=== PATIENT | male | born 1980 | race Caucasian/White ===

== ENCOUNTER 2020-10-26 12:42 | Outpatient (REF) | payer OTHER, SELFPAY ==
[2020-10-26 13:57] LABS: MANUAL DIFF FLAG NO
[2020-10-26 14:04] LABS: Basophils Percent Auto 0.5 % (0-2); Eosinophils Absolute Auto 0.3 X10*3/uL (0.0-0.4); Eosinophils Percent Auto 3.6 % (0-4); Hematocrit 44.8 % (42-52); Hemoglobin 13.8 g/dl (14.0-18.0); Imm Gran Abs Auto 0.07 X10*3/uL (0.00-0.03); Imm Gran Pct Auto 0.9 % (0.0-0.4); Lymphocytes Absolute Auto 2.8 X10*3/uL (1.2-4.9); Lymphocytes Percent Auto 34.6 % (20-40); Mean Corpuscular HGB Conc 30.8 g/dl (31.0-36.0); Mean Corpuscular Hemoglobin 26.7 pg (27.0-33.0); Mean Corpuscular Volume 86.7 fL (80-98); Mean Platelet Volume 9.6 fL (9.4-12.4); Monocytes Absolute Auto 0.7 X10*3/uL (0.1-1.2); Monocytes Percent Auto 8.5 % (2-11); Neutrophils Absolute Auto 4.3 X10*3/uL (2.0-8.3); Neutrophils Percent Auto 51.9 % (45-73); Platelet Count 334 X10*3/uL (160-400); Red Blood Count 5.17 X10*6/uL (4.60-5.80); Red Cell Distribution Width 13.2 % (11.0-16.0); White Blood Count 8.2 X10*3/uL (4.8-10.8)
[2020-10-26 14:35] LABS: Alanine Aminotransferase 50 U/L (0-40); Alkaline Phosphatase 55 U/L (39-117); Anion Gap 10 (12-20); Aspartate Amino Transferase 36 U/L (5-37); Bilirubin Total 0.2 mg/dL (0.0-1.0); Blood Urea Nitrogen 12 mg/dL (9-16); Calcium 8.9 mg/dL (8.4-10.2); Carbon Dioxide 30 mmol/L (22-29); Chloride 107 mmol/L (96-108); Cholesterol 210 mg/dL; Estimated Glomerular Filt Rate > 60; Glucose Fasting 92 mg/dL (60-99); HDL Cholesterol 44 mg/dL; LDL Cholesterol Calculated 150 mg/dl; Potassium 4.5 mmol/l (3.3-5.1); Sodium 142 mmol/L (135-145); Total Protein 6.6 g/dL (6.5-8.0); Triglycerides 84 mg/dL
[2020-10-26 14:55] LABS: TSH reflex Free T4 2.61 mIU/mL (0.32-4.0)
== END 2020-10-26 12:43 | disposition home or self-care (01) ==
LOC: HO.HMGCLDS 12:42
PROVIDERS: PCP Internal Medicine; Visit Provider Internal Medicine
DX: Z00.01 Encounter for general adult medical examination with abnormal findings (principal)
CPT/HCPCS: 36415; 80053; 80061; 84443; 85025

== ENCOUNTER → 2020-12-01 15:01 | Outpatient (BNVA) | payer OTHER, SELFPAY | PROVIDERS: PCP Internal Medicine; Visit Provider Physician Assistant | DX: Z76.89 Persons encountering health services in other specified circumstances (principal) ==

== ENCOUNTER 2020-12-19 15:43 | Emergency (ER) | payer OTHER, SELFPAY ==
[2020-12-19 15:47] VITALS: BP 135/66; PULSE 70; RESP 18; TEMP 36.4; O2SAT 98; BMI 31.1
[2020-12-19] MEDS: diphenhydrAMINE HCL 50 MG/ML VIAL 25 MG IVPUSH (16:11)
[2020-12-19] MEDS: Famotidine/PF 20 MG/2 ML VIAL IVPUSH (16:11)
[2020-12-19] MEDS: methylPREDNISolone Sod Succ/PF 125 MG/2 ML VIAL IVPUSH (16:11)
--- NOTE | 2020-12-19 16:23 | ED_ITS ---
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 REPORTS FEELS TICKLE IN HIS THROAT/MILD ORAL SWELLING, DENIES SOB, DIFFICULTY BREATHING, WHEEZING. DOES ADMIT RECENTLY STARTED NEW ANTIBIOTIC 5 DAYS AGO, DID NOT TAKE TODAY. REPORTS EATS SAME MEAL AT [facility] [employer] [facility] WITHOUT THIS REACTION. DENIES OTHER NEW EXPOSURES INCLUDING LOTIONS, CREAMS, DETERGENTS, INSECT BITES, RECENT TRAVEL, OTHERS WITH SIMILAR SYMPTOMS. DOES ADMIT THIS HAS HAPPENED IN THE PAST DUE TO NAPROXEN Related Data Previous Rx's Medication Instructions Recorded hydroxyzine HCl 25 mg tablet 25 mg PO BEDTIME PRN #20 tab 10/26/20 bisacodyl 5 mg tablet,delayed 5 mg PO ONCE 1 Days #2 tab 12/01/20 release miralax See Rx Instructions PO ONCE #238 g 12/01/20 cetirizine [Zyrtec] 10 mg PO DAILY PRN #14 tab 12/19/20 diphenhydramine HCl [Benadryl] 25 mg PO Q6H PRN #14 cap 12/19/20 epinephrine [EpiPen 2-Hsane] 0.3 mg IM Q10M PRN #1 ea 12/19/20 Allergies Allergy/AdvReac Type Severity Reaction Status Date / Time naproxen [NAPROXEN] Allergy Unknown ANGIOEDEMA, Verified 12/19/20 15:50 Penicillins [PENICILLINS] Allergy Unknown ANAPHYLAXIS Verified 12/19/20 15:50 Review of Systems Review of Systems: Constitutional: No Weight loss, No Fever, No Chills ENT : +throat tickling sensation, No difficulty swallowing, No hoarseness Cardiovascular: No Chest Pain, No SOB Respiratory: No Cough, No Sputum, No Wheezing Skin: + rash Yes all other systems are reviewed and are negative PMFSH Past Medical History Attestation statement: The following information was validated with the patient. Medical History Allergic rhinitis Anxiety Colon cancer screening Family history of colon cancer in father Need for Tdap vaccination Nephrotic syndrome Seasonal allergies Surgical History History of tonsillectomy Family History Family History Father Colon cancer Mother No problems noted. Son Seizures Asthma Allergy Maternal Grandmother No problems noted. Maternal Grandfather No problems noted. Daughter No problems noted. Daughter No problems noted. 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 Physical Exam Vital Signs: Vital Signs: Last Vital Signs Temp 97.6 F 12/19/20 15:47 Pulse 70 12/19/20 15:47 Resp 18 12/19/20 15:47 BP 135/66 12/19/20 15:47 Pulse Ox 98 12/19/20 15:47 Body Mass Index 31.1 Const: General: cooperative, healthy appearing and no acute distress Orientation/consciousness: patient oriented x3 Limitations: no limitations HENMT: Head: Yes normal to inspection Ears: hearing grossly normal bilaterally General nose exam: Normal external nose present Face and sinus: Yes normal facial exam Mouth: Normal oral and palatal mucosa present, tongue normal, no audible dysphonia and no drooling Throat: Yes posterior oropharynx normal, Yes uvula midline, No peritonsillar mass and No uvular edema Eyes: General: appearance normal, both eyes and all related structures EOM: EOMs intact bilaterally Neck: Neck: Yes normal visual inspection and Yes no lymphadenopathy Resp: Effort & Inspection: normal respiratory effort, not labored and no stridor Auscultation: clear to auscultation bilaterally, no rales, no rhonchi and no wheezes Cardio: Rate: regular rate Heart sounds: S1 normal heart sound present and S2 normal heart sound present GI: Inspection: Yes normal to inspection Skin: Other: + diffuse hives noted to bilateral arms, back, chest, and abdomen Wounds: no wounds Neuro: General: patient oriented x3 Gait exam (Neuro): Normal gait present Extrem: General: Yes normal to inspection Course Course Course Narrative: * 1713- on re-evaluation patient comfortably sleeping, hives have resolved, denies shortness of breath, difficulty breathing, oral swelling. Plan for DC home. 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 ON EXAM VSS, NAD/NONTOXIC APPEARING, NO RESPIRATORY DISTRESS. DIFFUSE HIVES NOTED. NO INTRAORAL SWELLING OR WHEEZING. DISCUSSED WITH PATIENT HE SHOULD STOP TAKING ANTIBIOTIC PLAN: IV SOLU-MEDROL, BENADRYL, PEPCID, RE-EVALUATE Discharge Plan Discharge Clinical Impression: Allergic reaction Qualifiers: Encounter type: initial encounter Qualified Code(s): T78.40XA - Allergy, unspecified, initial encounter Patient Disposition: Home, Self-Care Instructions: Allergies (ED) Additional Instructions: Soft taking newly prescribed antibiotic Take Benadryl at home as needed for allergic reaction symptoms Take Zyrtec during the day as well not make you drowsy Use EpiPen only for anaphylaxis and then come to ED for further evaluation/monitoring if used If you at all develops difficulty breathing, throat closing sensation, oral swelling, wheezing, or drooling return to the ED immediately Follow-up with her primary care doctor as well as an pump station operator for allergy testing Prescriptions: New diphenhydramine HCl [Benadryl] 25 mg capsule 25 mg PO Q6H PRN (Reason: allergic reaction) Qty: 14 RF: 0 cetirizine [Zyrtec] 10 mg tablet 10 mg PO DAILY PRN (Reason: allergy symptoms) Qty: 14 RF: 0 epinephrine [EpiPen 2-Shane] 0.3 mg/0.3 mL auto-injector 0.3 mg IM Q10M PRN (Reason: anaphylaxis) Qty: 1 RF: 0 No Action hydroxyzine HCl 25 mg tablet 25 mg PO BEDTIME PRN (Reason: anxiety) Qty: 20 RF: 0 bisacodyl [Dulcolax (bisacodyl)] 5 mg tablet,delayed release (DR/EC) 5 mg PO ONCE 1 Days Qty: 2 RF: 0 miralax See Rx Instructions PO ONCE Qty: 238 RF: 0 Referrals: Raz Boss DO [Physician] - 3 days Physician,Unknown [Primary Care Provider] - 2 days
--- NOTE | 2020-12-19 16:41 | PC.NURSE ---
pt sleepy, resp unlabored, no diff breathing, pt states, im starting to feel better.
[2020-12-19 18:00] VITALS: BP 119/63; PULSE 67; RESP 16; O2SAT 98
== END 2020-12-19 18:02 | disposition home or self-care (01) ==
PROVIDERS: Emergency Provider Emergency Medicine
DX: T78.40XA Allergy, unspecified, initial encounter (principal); L50.0 Allergic urticaria; X58.XXXA Exposure to other specified factors, initial encounter
CPT/HCPCS: 96374; 96375; 99284; J1200; J2930

== ENCOUNTER 2021-02-01 07:26 | Day surgery (SDC) | payer OTHER, SELFPAY ==
[2021-01-26 15:51] VITALS: BMI 31.8
--- NOTE | 2021-01-31 08:53 | P.CONAN_ITS ---
Documented by User: Jennifer Hinton 01/31/21 08:56 HPI - Anesthesia Eval Consult details Narrative: 40yo M for Colonoscopy PMFSH Active Problems Active Problems: All Active Problems (Updated 12/20/20 @ 00:00 by Iman Selby) Need for Tdap vaccination (Acute) Seasonal allergies (Acute) Allergic rhinitis (Acute) Anxiety (Acute) Family history of colon cancer in father (Acute) Colon cancer screening (Acute) Past Medical History Medical History Allergic rhinitis Anxiety Colon cancer screening Family history of colon cancer in father Need for Tdap vaccination Nephrotic syndrome Seasonal allergies Family History Family History Father Colon cancer Mother No problems noted. Son Seizures Asthma Allergy Maternal Grandmother No problems noted. Maternal Grandfather No problems noted. Daughter No problems noted. Daughter No problems noted. Surgical History Surgical History History of tonsillectomy Social History Social History Alcohol intake: current Alcohol intake frequency: holidays/special occasions only Smoking Status: Never smoker Use of substances other than those prescribed or required for medical reasons: Yes Substance Use Type: Marijuana Substance Use Frequency: Daily Advance Directives: No Advance Directives Information Provided: No Advance Directives on File: No Current occupational status: employed Current occupation: [email or web address] Meds Allergies Allergy/AdvReac Type Severity Reaction Status Date / Time naproxen [NAPROXEN] Allergy Severe Angioedema Verified 02/01/21 07:44 Penicillins [PENICILLINS] Allergy Severe ANAPHYLAXIS Verified 02/01/21 07:44 amoxicillin Allergy Intermediate Hives Verified 02/01/21 07:44 Exam Exam Date and Time: January 31, 2021 0853 Height,Weight and Vital Signs: Height 6 ft Weight 106.594 kg Pertinent Lab Results Pertinent Lab Results: Laboratory Tests 10/26/20 10/26/20 12:50 12:50 WBC 8.2 Hgb 13.8 L Hct 44.8 Plt Count 334 Sodium 142 Potassium 4.5 Chloride 107 Carbon Dioxide 30 H BUN 12 Creatinine 1.20 Assessment and Plan Assessment Anesthesia Assessment: Chart Reviewed Documented by User: Sameera Miller 02/01/21 07:56 PMFSH Past Medical History Medical History Allergic rhinitis Anxiety Colon cancer screening Family history of colon cancer in father Need for Tdap vaccination Nephrotic syndrome Seasonal allergies Family History Family History Father Colon cancer Mother No problems noted. Son Seizures Asthma Allergy Maternal Grandmother No problems noted. Maternal Grandfather No problems noted. Daughter No problems noted. Daughter No problems noted. 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 Meds Allergies Allergy/AdvReac Type Severity Reaction Status Date / Time naproxen [NAPROXEN] Allergy Severe Angioedema Verified 02/01/21 07:44 Penicillins [PENICILLINS] Allergy Severe ANAPHYLAXIS Verified 02/01/21 07:44 amoxicillin Allergy Intermediate Hives Verified 02/01/21 07:44 Exam Airway Mallampati Class: II TM Dist: >3cm Neck ROM: Full Loose/Missing/Broken Teeth: No Heart: RRR Lungs: CTA Assessment and Plan Assessment Anesthesia Assessment: Anesthesia Plan Discussed and Chart Reviewed Final Anesthetic Review NPO: Yes ASA Class: II Final Preanesthetic Review: Meds/Allgs Chart Reviewed, Consent Obtained/Reviewed and Anes Risks/Benef Reviewed Patient Risk: Low Procedure Risk: Low Anesthetic Plan Anesthetic Plan: MAC: Disposition: Standard PACU
[2021-02-01 07:45] VITALS: BP 126/60; PULSE 67; RESP 20; TEMP 36.5; O2SAT 97
--- NOTE | 2021-02-01 07:56 | MHC.SHP ---
Pre-Procedural Eval Section B Chief Complaint: Colon Cancer Details of Present Illness: dad with crc Relevant Family History (Specify if Yes): Yes Relevant Social History: Other (specify) (thc use) Present Medications: see Short Stay Collaborative assessment Medical History: Significant History (Allergic rhinitis Anxiety Colon cancer screening Family history of colon cancer in father Need for Tdap vaccination Nephrotic syndrome Seasonal allergies) History of Previous Operations: Relevant previous surgery/procedure and date(s) (tonsilectomy) Allergies: Allergies Allergy/AdvReac Type Severity Reaction Status Date / Time naproxen [NAPROXEN] Allergy Severe Angioedema Verified 02/01/21 07:44 Penicillins [PENICILLINS] Allergy Severe ANAPHYLAXIS Verified 02/01/21 07:44 amoxicillin Allergy Intermediate Hives Verified 02/01/21 07:44 Review of Systems Sugical H&P ROS: Negative: Constitution, Cardiovascular, Respiratory, Neurological, Psychiatric, Hem-Onc, Allergic/Immunologic, Gastrointestinal, Genitourinary, Musculoskeletal, Integumentary, Endocrine and Eyes/Ears/Nose/Throat Exam Surgical H&P Exam: Normal: HEENT, Normal: Heart, Normal: Lungs, Normal: Extremities, Normal: Abdomen, Normal: Skin and Normal: Neurological Plan Diagnosis/Plan: Unchanged I have reviewed the history and physical and performed a pertinent physical examination on my patient. No changes have occurred unless specified.
[2021-02-01] MEDS: Lactated Ringers 1,000 ML 50 ML IV (08:04)
--- NOTE | 2021-02-01 08:42 | PM.OP ---
Brief Operative Note Date of Service: 02/01/21 Pre-op diagnosis: colon screening, high risk Post-op diagnosis: same Procedure: see op note Surgeon: Jorgito Guillory MD Anesthesia: MAC Estimated blood loss (mL): 0 Condition: stable Disposition: PACU
--- NOTE | 2021-02-01 08:42 | W.PM.OPN ---
Operative Note Operative Note Date of Service: 02/01/21 Narrative: Operative Information Procedure Description: Colonoscopy COLONOSCOPY Instrument: Olympus variable stiffness pediatric scope 190L Colonoscopy Monitoring: Vital signs and clinical assessment, continuous EKG monitoring, Pulse oximetry, Carbon Dioxide monitoring and blood pressure monitoring were done throughout the procedure. Colon withdrawal time was 10 minutes. Procedure: The patient was placed in the left lateral decubitis position and pre-procedure medications were administered. After a digital rectal examination of the ano-rectum, the video colonoscope was inserted into the rectum and advanced through the colon to the cecum/TI. The colonoscope was slowly withdrawn in a retrograde panoramic fashion and the colon mucosa was carefully examined including a retroflexed view of the rectum. Findings and interventions are described below. Procedure Difficulty:easy Findings: Terminal Ileum-normal Cecum:normal Ascending Colon: normal Transverse Colon -normal Descending Colon: 8-9 mm sessile polyp removed with cold snare, not retrieved Sigmoid Colon: normal Rectum: Retroflexion with small internal hemorrhoids, grade I Anorectum - normal Colon preparation: [place] Bowel Preparation Scale Right colon; 3 Transverse colon: 3 Left colon; 3 (0 = Unprepared colon segment with mucosa not seen due to solid stool that cannot be cleared. 1 = Portion of mucosa of the colon segment seen, but other areas of the colon segment not well seen due to staining, residual stool and/or opaque liquid. 2 = Minor amount of residual staining, small fragments of stool and/or opaque liquid, but mucosa of colon segment seen well. 3 = Entire mucosa of colon segment seen well with no residual staining, small fragments of stool or opaque liquid) Impression and Post Procedure Diagnosis: polyp internal hemorrhoids Plan: High fiber diet leaflet Avoid straining at stool, epsom salts and sitz bath, anusol supps or cream as needed Repeat Colonoscopy in 5 years or earlier if clinically indicated Above findings were reviewed with the patient and relevant handouts were provided if indicated.
[2021-02-01 09:09] VITALS: BP 93/59; PULSE 67; RESP 18; TEMP 36.7; O2SAT 99
[2021-02-01 09:24] VITALS: BP 96/66; PULSE 72; RESP 18; O2SAT 98
[2021-02-01 09:39] VITALS: BP 114/79; PULSE 63; RESP 20; TEMP 36.7; O2SAT 97
== END 2021-02-01 09:50 | disposition home or self-care (01) ==
PROVIDERS: Visit Provider Internal Medicine Gastroenterology
PROC: 0DJD8ZZ Inspection of Lower Intestinal Tract, Via Natural or Artificial Opening Endoscopic (ICD-10-PCS; CPT 45378; principal; 2021-02-01 08:30)
DX: Z12.11 Encounter for screening for malignant neoplasm of colon (principal); Z80.0 Family history of malignant neoplasm of digestive organs; K63.5 Polyp of colon; K64.0 First degree hemorrhoids; K59.00 Constipation, unspecified; J30.9 Allergic rhinitis, unspecified; Z88.0 Allergy status to penicillin; Z88.8 Allergy status to other drugs, medicaments and biological substances
CPT/HCPCS: 45385; J2250

== ENCOUNTER 2022-04-09 17:59 | Emergency (ER) | payer OTHER, SELFPAY ==
[2022-04-09 18:30] VITALS: BP 121/68; PULSE 73; RESP 18; TEMP 36.6; O2SAT 95; BMI 33.9
[2022-04-09 21:17] VITALS: BP 109/60; PULSE 78; RESP 14; O2SAT 100
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
[2022-04-09] MEDS: Cyclobenzaprine HCl 10 MG TABLET PO (22:01)
== END 2022-04-09 22:27 | disposition home or self-care (01) ==
PROVIDERS: Emergency Provider Internal Medicine; PCP Internal Medicine
DX: Z04.1 Encounter for examination and observation following transport accident (principal)
CPT/HCPCS: 99283; 99284

== ENCOUNTER 2025-03-05 17:30 | Inpatient (IN) | payer OTHER, SELFPAY ==
[2025-03-05] VITALS (7 sets, daily range): BP systolic 103–128; BP diastolic 57–76; PULSE 84–104; RESP 13–20; TEMP 37.7–39.3; O2SAT 95–100; BMI 34.5
--- NOTE | ~2025-03-05 | CT_ITS ---
CLINICAL HISTORY: left lower abdominal pain CT abdomen and pelvis with contrast Comparison: None Findings: No consolidation or effusion. Minimal right basilar dependent atelectasis. The gallbladder is somewhat distended but otherwise appears unremarkable. No biliary ductal dilatation. The liver, spleen, pancreas and adrenal glands are unremarkable. Enhancement of bilateral kidneys with no ureteral stones and no hydronephrosis or hydroureter Nonspecific very mild bilateral perinephric stranding. No bowel obstruction, pneumoperitoneum, or pneumatosis. Appendix not visualized. No free fluid. Loculated fluid collection. Pelvic contents unremarkable. Left inguinal swelling with inflammatory stranding and small lymph nodes. No loculated fluid collection. Abdominal aorta normal in size. Retroaortic left renal vein. No acute fracture. 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 Left inguinal inflammatory stranding suggestive of cellulitis with reactive nodes. No abscess. 2. No acute intra-abdominal or intrapelvic findings. This document has been electronically signed by: Meme Lennon MD on 03/05/2025 22:39:53
--- NOTE | ~2025-03-05 | US_ITS ---
CLINICAL HISTORY: Pain left groin area, assess for abscess or fluid, epididymitis Scrotal ultrasound with vascular interrogation Comparison: CT/SR - CT ABDOMEN PELVIS W IV CON - 03/05/25 20:43 EDT Findings: The testes are normal in echotexture without lesions. Normal arterial/venous color Doppler and flow pattern. Right testis size: 3.5 x 2.2 x 2.8 cm, volume of 11.5mL. Left testis size: 2.9 x 2.2 x 3.1 cm, volume of 10.3mL. The right epididymis is normal in size and echotexture with normal color Doppler. Right epididymal head cysts versus spermatoceles measuring 0.5 x 0.3 x 0.5 cm and 0.5 x 0.4 x 0.4 cm. The left epididymis is enlarged, heterogeneous in echotexture and with increased color Doppler Small bilateral hydrocele with internal echoes, [id number]. No varicocele. No fluid collection in the left groin. Impression: Left epididymitis. This document has been electronically signed by: Kamala Suarez MD on 03/07/2025 13:04:21
--- NOTE | ~2025-03-05 | XR_ITS ---
CLINICAL HISTORY: SOB 2 view chest x-ray Comparison: None Findings: Heart size is normal. No consolidation, pleural effusion or pneumothorax. No acute fracture. IMPRESSION: 1. No acute findings. This document has been electronically signed by: Meme Lennon MD on 03/05/2025 19:22:03
--- NOTE | 2025-03-05 18:59 | ED.GENADULT ---
HPI - General Adult General Chief complaint: Abdominal Pain Stated complaint: lower abd pain Time Seen by Provider: 03/05/25 19:23 Source: patient and RN notes reviewed Mode of arrival: ambulatory Limitations: no limitations History of Present Illness ED Provider: Jonathon HORNER narrative: 44-year-old male past medical history significant for hypertension presents for evaluation of abdominal pain. Patient reports left-sided lower abdominal pain since late last night. He reports his headache and fevers with chills. About 2 weeks ago he had some nausea and vomiting and apparently at that time had some black stool which resolved he has not had any stool in the last 2 weeks. He reports that his father recently of colon cancer. The patient's last colonoscopy was about 8 years ago he has no history abdominal surgeries. His pain is 10/10 denies any cough, shortness of breath no other complaints or concerns at this time Related Data Previous Rx's ?Medication ?Instructions ?Recorded hydroxyzine HCl 25 mg tablet 25 mg PO BEDTIME PRN anxiety #20 10/26/20 tabs bisacodyl 5 mg tablet,delayed 5 mg PO ONCE colonoscopy prep 1 12/01/20 release (Dulcolax (bisacodyl)) day #2 tabs miralax See Rx Instructions PO ONCE #238 12/01/20 grams cetirizine 10 mg tablet (Zyrtec) 10 mg PO DAILY PRN allergy 12/19/20 symptoms #14 tabs diphenhydramine HCl 25 mg capsule 25 mg PO Q6H PRN allergic reaction 12/19/20 (Benadryl) #14 caps epinephrine 0.3 mg/0.3 mL 0.3 mg (0.3 mL) IM Q10M PRN 12/19/20 injection, auto-injector (EpiPen anaphylaxis #1 ea 2-Shane) bisacodyl 5 mg tablet,delayed 10 mg (2 x 5 mg) PO ONCE 01/30/21 release (Dulcolax (bisacodyl)) colonoscopy prep 1 day #2 tabs polyethylene glycol 3350 17 238 g PO ONCE 1 day #238 grams 01/30/21 gram/dose oral powder (Miralax) cyclobenzaprine 10 mg tablet 10 mg PO TID PRN muscle spasm 7 04/09/22 days #21 tabs Allergies Allergy/AdvReac Type Severity Reaction Status Date / Time naproxen [NAPROXEN] Allergy Severe Angioedema Verified 03/05/25 18:32 Penicillins [PENICILLINS] Allergy Severe ANAPHYLAXIS Verified 03/05/25 18:32 amoxicillin Allergy Intermediate Hives Verified 03/05/25 18:32 [place] And Derivatives Allergy Hives Verified 03/05/25 18:32 Review of Systems Constitutional: Constitutional: Reports body ache(s), Reports chills, Reports fever(s), Reports headache(s), Reports lethargy, Reports malaise and Reports weakness Eyes: Eyes: Denies blurry vision ENT: Denies vertigo, Denies dizziness, Reports headache(s) and Denies sore throat Cardiovascular: Cardiovascular: Denies chest pain and Denies dyspnea Respiratory: Respiratory: Denies cough and Denies dyspnea Gastrointestinal: Gastrointestinal: Reports abdominal pain, Denies hematochezia, Reports diarrhea, Reports loose stools, Reports nausea and Denies vomiting Musculoskeletal: Musculoskeletal: Denies back pain Integumentary/Breasts: Skin/Breast: Denies rash Neurologic: Denies vertigo, Denies dizziness, Reports headache(s) and Reports weakness PMFSH Past Medical History Medical History Allergic rhinitis Anxiety Colon cancer screening Family history of colon cancer in father Need for Tdap vaccination Nephrotic syndrome Plantar fasciitis Seasonal allergies Surgical History History of tonsillectomy Family History Family History Father Colon cancer Mother No problems noted. Son Seizures Asthma Allergy Maternal Grandmother No problems noted. Maternal Grandfather No problems noted. Daughter No problems noted. Daughter No problems noted. 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 Physical Exam ED Vital Signs: Vital Signs - 24 hr 03/05/25 18:29 03/05/25 19:58 03/05/25 20:38 Temperature 100.7 F H 102.7 F H 99.9 F Pulse Rate 104 H 92 104 H Respiratory Rate 18 16 16 Blood Pressure 128/73 109/72 118/76 Pulse Oximetry 96 95 98 Oxygen Delivery Method Room Air Room Air Room Air 03/05/25 21:29 03/05/25 22:02 03/05/25 23:22 Temperature 100.7 F H 100.8 F H 100.2 F Pulse Rate 100 91 Respiratory Rate 13 17 Blood Pressure 113/62 103/69 Pulse Oximetry 100 95 Oxygen Delivery Method Room Air Room Air 03/05/25 23:28 Temperature Pulse Rate 84 Respiratory Rate 20 Blood Pressure 107/57 L Pulse Oximetry 99 Oxygen Delivery Method Room Air BMI result Body Mass Index 34.5 Const General: healthy appearing, no acute distress, alert and awake Nutritional Appearance: well nourished Orientation/consciousness: patient oriented x3 HENMT Head: Yes normocephalic and Yes atraumatic Eyes Eyelids: Yes eyelids normal Conjunctivae: conjunctivae normal Sclerae: sclerae normal Corneas: corneas normal Pupils: Equal, round and reactive pupils present EOM: EOMs intact bilaterally Neck Neck: Yes full ROM Resp Effort & Inspection: normal respiratory effort, able to speak in complete sentences and not labored Cardio Rate: regular rate Rhythm: regular rhythm GI Inspection: No distended Palpation (GI): Soft to palpation, not firm, Tenderness to palpation present (GI) in the LLQ and in the LUQ; not in the RLQ, Guarding due to palpation present (GI) in the LLQ and not rigid Other: no palpable inguinal hernia Skin General skin exam: elasticity normal Neuro General: patient oriented x3 Cranial nerves: Yes Equal, round and reactive pupils present and Yes Bilaterally intact EOM present Cognition (Neuro): normal cognition Extrem Other: Moving all extremities well without any obvious deformities Course Course Course Narrative: RME performed by Kendal Garnica PA-C. Patient is a 44 year old assigned male at presenting to the emergency department with abdominal pain, nausea, and diarrhea. Detailed physical exam and review of systems are deferred to the primary special educator. labs and swabs ordered. Patient placed back in the waiting room pending room availability and results. Reevaluation(s) Reevaluation #1: Sepsis focused exam performed, no evidence of hypoperfusion Time: 20:38 Reevaluation #2: patient's CT scan shows possible left inguinal cellulitis. I did not previously see any skin changes on the initial evaluation, however given the CT findings I went to evaluate the patient again. There is no erythema, wounds, lesions or abscess to the lower abdomen, inguinal region or scrotum. However, the patient is still guarding in the left inguinal region on palpation. His fever has returned, we will discuss with the hospitalist for admission. Time: 23:09 Reevaluation #3: Discussed with Dr Gaspar who will admit the patient and add vancomycin. Time: 00:21 Medications Administered Discontinued Medications Generic Name Dose Route Start Last Admin Trade Name Freq PRN Reason Stop Dose Admin Ceftriaxone Sodium 1 gm 03/05/25 19:43 03/05/25 20:04 Ceftriaxone Sodium 1 Gm Vial IVPUSH 03/05/25 19:44 1 gm ONCE ONE Administration Sodium Chloride 1,000 mls @ 999 mls/hr 03/05/25 19:45 03/05/25 21:25 Ns IV 03/05/25 20:45 Infused .Q1H1M GEMINI Infusion Acetaminophen 1,000 mg in 100 mls @ 400 mls/hr 03/05/25 19:43 03/05/25 21:36 Ofirmev IV 03/05/25 19:57 Infused ONCE ONE Infusion Iohexol 100 ml 03/05/25 20:46 03/05/25 20:46 Iohexol 350 Mg/Ml 100 Ml Infus..Btl IV 03/05/25 20:47 85 ml ONCE ONE Administration Morphine Sulfate 4 mg 03/05/25 19:43 03/05/25 20:04 Morphine Sulfate 4 Mg/Ml Cartridge IVPUSH 03/05/25 19:44 4 mg ONCE ONE Administration Protocol Morphine Sulfate 4 mg 03/05/25 23:24 03/05/25 23:29 Morphine Sulfate 4 Mg/Ml Cartridge IVPUSH 03/05/25 23:25 4 mg ONCE ONE Administration Protocol Medical Decision Making Medical Decision Making [facility] [place] Narrative: 44-year-old male past medical history as above presents for evaluation of severe left lower abdominal pain for the last 24 hours. He did not have a viral illness about 2 weeks ago which resolved. He has a leukocytosis, he was febrile with a lactic of 2.1. A sepsis alert was called. He was given ceftriaxone which would cover urine jeffrey and intra-abdominal jeffrey. He received IV fluids. , CT scan pending Differential Diagnosis Differential Diagnoses: The differential diagnosis associated with the presentation includes intra-abdominal abscess Colitis Diverticulitis Inguinal hernia Sepsis Admission/Observation Consideration of admission/observation: Escalation of care including admission/observation considered Lab Data MDM Lab Attestation statement: I reviewed the patient's lab results. leukocytosis to 14.4 with no significant anemia. Normal platelet count. No electrolyte abnormalities. Lactic acid is elevated to 2.1. 03/05/25 18:52 03/05/25 18:52 Labs: Lab Results 03/05/25 03/05/25 03/05/25 Range/Units 18:52 21:30 22:09 WBC 14.4 H (4.8-10.8) X10*3/uL RBC 5.23 (4.60-5.80) X10*6/uL Hgb 14.0 (14.0-18.0) g/dl Hct 43.2 (42.0-52.0) % MCV 82.6 (80.0-98.0) fL MCH 26.8 L (27.0-33.0) pg MCHC 32.4 (31.0-36.0) g/dl RDW 13.5 (11.0-16.0) % Plt Count 234 (160-400) X10*3/uL MPV 9.0 L (9.4-12.4) fL Immature Gran % (Auto) 0.9 H (0.0-0.4) % Neut % (Auto) 89.6 H (45-73) % Lymph % (Auto) 3.1 L (20-40) % [place] % (Auto) 6.1 (2-11) % Eos % (Auto) 0.1 (0-4) % Baso % (Auto) 0.2 (0-2) % Lymph # (Auto) 0.5 L (1.2-4.9) X10*3/uL [place] # (Auto) 0.9 (0.1-1.2) X10*3/uL Eos # (Auto) 0.0 (0.0-0.4) X10*3/uL Baso # (Auto) 0.0 (0.0-0.2) X10*3/uL Abs Immat Gran (auto) 0.13 H (0.00-0.03) X10*3/uL Absolute Neuts (auto) 12.9 H (2.0-8.3) x10*3/uL Absolute Nucleated RBC 0.000 (0.0-0.012) X10*3/uL Nucleated RBC % (auto) 0.0 (0.0-0.2) /100WBC Sodium 138 (135-145) mmol/L Potassium 4.0 (3.3-5.1) mmol/L Chloride 105 (96-108) mmol/L Carbon Dioxide 24 (22-29) mmol/L Anion Gap 13 (12-20) BUN 15 (9-16) mg/dL Creatinine 1.13 (0.5-1.4) mg/dL Estim Creat Clear Calc 108.3 Estimated GFR > 60 Random Glucose 113 (60-115) mg/dL Lactic Acid 2.1 H* (0.5-2.0) mmol/L Lactic Acid F/U @ 2Hr 1.2 (0.5-2.0) mmol/L Calcium 9.1 (8.4-10.2) mg/dL Total Bilirubin 0.9 (0.0-1.0) mg/dL AST 39 H (5-37) U/L ALT 64 H (0-40) U/L Alkaline Phosphatase 60 (39-117) U/L Total Protein 7.2 (6.5-8.0) g/dL Albumin 4.4 (3.5-5.0) g/dL Urine Color Yellow Urine Appearance Clear Urine pH 5.5 (5.0-9.0) Ur Specific [place] >= 1.030 H (1.005-1.025) Urine Protein Negative (Neg-Trace) mg/dL Urine Glucose (UA) Negative (Negative) mg/dL Urine Ketones Negative (Negative) mg/dL Urine Blood Negative (Negative) Urine Nitrite Negative (Negative) Ur Leukocyte Esterase Trace H (Negative) Urine RBC 0-2 (0-2) /HPF Urine WBC 0-5 (0-5) /HPF Ur Squamous Epith Cells 0-2 (0-2) /HPF Urine Bacteria None Seen (None Seen) Hyaline Casts 3-5 (0-2) /LPF Influenza Type A (PCR) NEGATIVE (Negative) Influenza Type B (PCR) NEGATIVE (Negative) RSV RNA Qual (PCR) NEGATIVE (Negative) SARS-CoV-2 RNA (RT-PCR) NEGATIVE (Negative) Discharge Plan Discharge Clinical Impression: Abdominal pain, Cellulitis Patient Disposition: Admitted As Inpatient Prescriptions: No Action bisacodyl [Dulcolax (bisacodyl)] 5 mg tablet,delayed release (DR/EC) 10 mg PO ONCE 1 Days Qty: 2 0RF Rx Instructions: Take 2 tablets by mouth at 12:00pm the day before your procedure. polyethylene glycol 3350 [Miralax] 17 gram/dose powder 238 g PO ONCE 1 Days Qty: 238 0RF Rx Instructions: Take as directed by mouth the day before your procedure. diphenhydramine HCl [Benadryl] 25 mg capsule 25 mg PO Q6H PRN (Reason: allergic reaction) Qty: 14 0RF cetirizine [Zyrtec] 10 mg tablet 10 mg PO DAILY PRN (Reason: allergy symptoms) Qty: 14 0RF epinephrine [EpiPen 2-Shane] 0.3 mg/0.3 mL auto-injector 0.3 mg IM Q10M PRN (Reason: anaphylaxis) Qty: 1 0RF Rx Instructions: for 2 doses cyclobenzaprine 10 mg tablet 10 mg PO TID PRN (Reason: muscle spasm) 7 Days Qty: 21 0RF hydroxyzine HCl 25 mg tablet 25 mg PO BEDTIME PRN (Reason: anxiety) Qty: 20 0RF bisacodyl [Dulcolax (bisacodyl)] 5 mg tablet,delayed release (DR/EC) 5 mg PO ONCE 1 Days Qty: 2 0RF miralax See Rx Instructions PO ONCE Qty: 238 0RF Rx Instructions: 238 grams PO once; mixed with 64 oz gatorade or crystal light Print Language: Tanzanian
[2025-03-05 19:00] LABS: MANUAL DIFF FLAG NO
[2025-03-05 19:07] LABS: Basophils Percent Auto 0.2 % (0-2); Eosinophils Percent Auto 0.1 % (0-4); Hematocrit 43.2 % (42.0-52.0); Imm Gran Abs Auto 0.13 X10*3/uL (0.00-0.03); Imm Gran Pct Auto 0.9 % (0.0-0.4); Lymphocytes Absolute Auto 0.5 X10*3/uL (1.2-4.9); Lymphocytes Percent Auto 3.1 % (20-40); Mean Corpuscular HGB Conc 32.4 g/dl (31.0-36.0); Mean Corpuscular Hemoglobin 26.8 pg (27.0-33.0); Mean Corpuscular Volume 82.6 fL (80.0-98.0); Monocytes Absolute Auto 0.9 X10*3/uL (0.1-1.2); Monocytes Percent Auto 6.1 % (2-11); Neutrophils Absolute Auto 12.9 x10*3/uL (2.0-8.3); Neutrophils Percent Auto 89.6 % (45-73); Platelet Count 234 X10*3/uL (160-400); Red Blood Count 5.23 X10*6/uL (4.60-5.80); Red Cell Distribution Width 13.5 % (11.0-16.0); White Blood Count 14.4 X10*3/uL (4.8-10.8)
[2025-03-05 19:13] LABS: Alanine Aminotransferase 64 U/L (0-40); Albumin Level 4.4 g/dL (3.5-5.0); Alkaline Phosphatase 60 U/L (39-117); Anion Gap 13 (12-20); Aspartate Amino Transferase 39 U/L (5-37); Bilirubin Total 0.9 mg/dL (0.0-1.0); Blood Urea Nitrogen 15 mg/dL (9-16); Calcium 9.1 mg/dL (8.4-10.2); Carbon Dioxide 24 mmol/L (22-29); Chloride 105 mmol/L (96-108); Creatinine Clr Calc Pharmacy 108.3; Estimated Glomerular Filt Rate > 60; Glucose Random 113 mg/dL (60-115); Sodium 138 mmol/L (135-145); Total Protein 7.2 g/dL (6.5-8.0)
[2025-03-05 19:16] LABS: Lactic Acid 2.1 mmol/L (0.5-2.0)
--- OUTSIDE RECORDS SUMMARY | 2025-03-05 19:35 | XMS_ITS | Patient Health Record ---
Author Organization [facility] Angela Alvaradoley Address [address] [facility] [place] [address] Care Team Providers Care Manager Registration Name Role Phone Heath Huerta Primary Care Provider Unav ailable Black, Leandra Unavailable [phone] Allergies Allergen (clinical drug ingredient) Drug/Non Drug Allergy documented on EMR Reaction Allergy Type Onset Date Status azithromycin Zithromax Z-Shane anaphylaxis Drug Allergy Active amoxicillin Amoxicillin hives Drug Allergy Act sergio naproxen Naproxen anaphylaxis Drug Allergy Activ e Reason For Referral No Information Medications Medication SIG (Take, Route, Frequency, Duration) Notes Start Date End Date Status hydrOXYzine HCl 15 mg prn Not- Taking hydrOXYzine HCl 10 MG as directed Orally PRN Not-Taking Night Splint AFO - L1930 as directed 07/13/2021 Not-Taking Cetirizine HCl 10 MG 1 tablet Orally Onc e a day for 30 day(s) Active EpiPen prn Not-Taking Physical Therapy . . . 2-3x/week for 3- 4 weeks 11/09/2021 Active Social History Tobacco Use: Social History Observation Description Date Details (start date - stop date) Former Smoker NA - NA Tobacco Use/Smoking Question Answer Notes Are you a: former smoker Additional Findings: Tobacco Non-User Ex-cigaret te smoker Alcohol Screen Question Answer Notes Did you have a drink contain ing alcohol in the past year? Yes How often did you have a dri nk containing alcohol in the past year? Monthly or less (1 point) Points 1 Interpretation Negative Tobacco use other than smoking: Question Answer Notes Are you an other tobacco user? No Problems No Known Problems Plan Of Treatment Pending Test Test Name Order Date ,[id number] TENDON SHEATH/LIGAMENT 0 06/19/2021,[id number] TENDON SHEATH/LIGAMENT 1 01/10/2021 Insurance Providers Payer Name Payer Address Payer Phone Subscriber Number Group Number Insured Name Patient Relationship to Insured Coverage Start Date Coverage End Date [employer] [id number] [address] [address] [place] [address] [id number] Tracie Tobias Spouse - patient is the spouse of the insured Medical (General) History Medical History History ICD Code Chicken pox Surgical History Surgery Date(Month/Year) tonsillectomy tendon repair, right hand
--- OUTSIDE RECORDS SUMMARY | 2025-03-05 19:35 | XMS_ITS | Clinical Summary ---
Author Organization [facility], Address [address] [place] [address] [place] [address] Phone Care Team Providers Care Manufacturing Assembler Name Role Phone Nicolas James MD Primary Care Provider [phone] Allergies Active Allergy Reactions Criticality Noted Date Comments Naproxen 01/31/2021 Nsaids 01/31/2021 Penicillin V 01/31/2021 Penicillins 01/31/2021 Salicylates 01/31/2021 Medications cetirizine (ZyrTEC) 10 MG tablet TAKE 1 TABLET BY MOUTH DAILY NEEDED FOR ALLERGY SYMPTOMS 12/19/2020 Active Banophen 25 MG capsule TAKE 1 CAPSULE BY MOUTH EVERY 6 HOURS NEEDED FOR ALLERGIC REACTION 12/19/2020 Active EPINEPHrine (EPIPEN) 0.3 MG/0.3ML injection syringe 12/19/2020 Active fluticasone (FLONASE) 50 MCG/ACT nasal spray 01/25/2021 Active hydrOXYzine (ATARAX) 25 MG tablet TK 1 T PO QHS PRF ANXIETY 10/26/2020 Active Active Problems Problem Noted Date Diagnosed Date Serum creatinine above reference range Social History Tobacco Use Types Packs/Day Years Used Date Smoking Tobacco: Unknown Sex and Gender Information Value Date Recorded Sex Assigned at Not on file Legal Sex Male 1:08 PM EST Gender Identity Not on file Sexual Orientation Not on file Plan of Treatment Health Maintenance Due Date Last Done Comments Hepatitis B Vaccine (1 of 3 - 19+ 3-dose series) 1998 Influenza Vaccine (#1) 2024 Pneumococcal Vaccine: Pediat rics (0 to 5 Years) and At-Risk Patients (6 to 64 Years) Aged Out No longer eligi ble based on patient's age to complete this topic Insurance [facility] ([id number]) Care Teams Manufacturing Assembler Relationship Specialty Start Date End Date Nicolas James MD [address] [place] [address] [phone] PCP - General Internal Medicine 01/26/21
[2025-03-05 19:36] LABS: Influenza A PCR NEGATIVE (Negative); Influenza B PCR NEGATIVE (Negative); Resp Syncy Virus RNA Qual PCR NEGATIVE (Negative); SARS COV2 PCR INHOUSE NEGATIVE (Negative)
[2025-03-05] MEDS: Morphine Sulfate 4 MG/ML CARTRIDGE IVPUSH ×2 (20:04→23:29)
[2025-03-05] MEDS: 0.9 % Sodium Chloride 1,000 ML 999 ML IV (20:04)
[2025-03-05] MEDS: cefTRIAXone sodium 1 GM VIAL IVPUSH (20:04)
[2025-03-05] MEDS: Acetaminophen 1,000 MG/100 ML PIGGYBACK 400 MG IV (20:07)
[2025-03-05] MEDS: iohexoL 350 MG/ML 100 ML INFUS..BTL IV (20:46)
[2025-03-05 20:58] LABS: Reflex Lactate? Lactic Acid Added
[2025-03-05 21:51] LABS: ~Lactic Acid-LAB USE ONLY 1.2 mmol/L (0.5-2.0)
[2025-03-05 22:48] LABS: Appearance Urine Clear; Color Urine Yellow; Glucose Urine UA Negative (Negative); Leukocyte Esterase Urine Trace (Negative); Nitrite Urine Negative (Negative); PH 5.5 (5.0-9.0); Specific Gravity - Urine >= 1.030 (1.005-1.025); UMIC TRIGGER UACC YES; Urine Blood Negative (Negative); Urine Ketones Negative (Negative); Urine Protein Negative (Neg-Trace)
[2025-03-05 23:36] LABS: Bacteria Urine None Seen (None Seen); RBC Urine 0-2 /HPF (0-2); Squamous Epithelial Cell Urine 0-2 /HPF (0-2); WBC Urine 0-5 /HPF (0-5)
[2025-03-06] VITALS (10 sets, daily range): BP systolic 105–128; BP diastolic 63–81; PULSE 79–112; RESP 16–20; TEMP 37.2–38.3; O2SAT 94–99; BMI 34.8
--- NOTE | 2025-03-06 00:33 | PM.IMHP ---
History of Present Illness Date of Service: 03/06/25 Chief Complaint: Groin pain This is a 44-year-old male with pertinent history of allergic rhinitis who presents to the emergency department for evaluation of left groin pain. Patient states his symptoms started 1 day prior to presentation. He has been having left lower abdominal discomfort and left groin pain that started 1 day ago which has been constant, nonradiating and without any relieving factors. Also has associated fevers and chills with headache at home. Patient states about 2 weeks ago he had a GI bug, noticed black stools but since then the diarrhea and black stool have resolved. Does have family history of colon cancer. No trauma or history abdominal surgery. No chest pain, palpitations, shortness of breath, changes in urinary or bowel habits. In the emergency department, imaging suggestive of left inguinal cellulitis. Found to be febrile with temp 102.7 degrees and leukocytosis at 14.4 Review of Systems Constitutional: Constitutional: Reports chills and Reports fever(s) Cardiovascular: Cardiovascular: Reports no additional cardiovascular complaints Respiratory: Respiratory: Reports no additional respiratory complaints Gastrointestinal: Gastrointestinal: Reports abdominal pain Genitourinary: Genitourinary: Reports no additional male genitourinary complaints [facility] Medical History Plantar fasciitis Need for Tdap vaccination Seasonal allergies Allergic rhinitis Anxiety Family history of colon cancer in father Colon cancer screening Nephrotic syndrome Family History Father Colon cancer Mother No problems noted. Son Seizures Asthma Allergy Maternal Grandmother No problems noted. Maternal Grandfather No problems noted. Daughter No problems noted. Daughter No problems noted. Surgical History History of tonsillectomy Social History Alcohol intake: former Smoked in Last 30 Days: No Use of substances other than those prescribed or required for medical reasons: No Substance Use Type: Marijuana Advance Directives: No Advance Directives Information Provided: Yes Current occupational status: employed Current occupation: [employer] Meds Allergies Allergy/AdvReac Type Severity Reaction Status Date / Time naproxen [NAPROXEN] Allergy Severe Angioedema Verified 03/05/25 18:32 Penicillins [PENICILLINS] Allergy Severe ANAPHYLAXIS Verified 03/05/25 18:32 amoxicillin Allergy Intermediate Hives Verified 03/05/25 18:32 [place] And Derivatives Allergy Hives Verified 03/05/25 18:32 Physical Exam Vital Signs and Narrative: Vital Signs: Last Vital Signs Temp 100.2 F 03/05/25 23:22 Pulse 84 03/05/25 23:28 Resp 20 03/05/25 23:28 BP 107/57 L 03/05/25 23:28 Pulse Ox 99 03/05/25 23:28 O2 Del Method Room Air 03/05/25 23:28 BMI result Body Mass Index 34.5 Middle-aged male lying in bed in no distress Neck supple, no JVD Regular rate and rhythm, S1-S2 heard Regular breath sounds bilaterally, no wheezing or crackles appreciated Left groin tenderness present with guarding, no external erythema Patient is awake, alert and oriented to self, place, time and person ; no focal motor deficit Psych: Normal mood No pedal edema Results Labs 03/05/25 18:52 03/05/25 18:52 Labs: Laboratory Results - last 24 hr 03/05/25 03/05/25 03/05/25 18:52 21:30 22:09 MCV 82.6 MCH 26.8 L MCHC 32.4 RDW 13.5 Plt Count 234 MPV 9.0 L Immature Gran % (Auto) 0.9 H Neut % (Auto) 89.6 H Lymph % (Auto) 3.1 L [place] % (Auto) 6.1 Eos % (Auto) 0.1 Baso % (Auto) 0.2 Lymph # (Auto) 0.5 L [place] # (Auto) 0.9 Eos # (Auto) 0.0 Baso # (Auto) 0.0 Abs Immat Gran (auto) 0.13 H Absolute Neuts (auto) 12.9 H Absolute Nucleated RBC 0.000 Nucleated RBC % (auto) 0.0 Anion Gap 13 Estim Creat Clear Calc 108.3 Estimated GFR > 60 Random Glucose 113 Lactic Acid 2.1 H* Lactic Acid F/U @ 2Hr 1.2 Calcium 9.1 Total Bilirubin 0.9 AST 39 H ALT 64 H Alkaline Phosphatase 60 Total Protein 7.2 Albumin 4.4 Urine Color Yellow Urine Appearance Clear Urine pH 5.5 Ur Specific [place] >= 1.030 H Urine Protein Negative Urine Glucose (UA) Negative Urine Ketones Negative Urine Blood Negative Urine Nitrite Negative Ur Leukocyte Esterase Trace H Urine RBC 0-2 Urine WBC 0-5 Ur Squamous Epith Cells 0-2 Urine Bacteria None Seen Hyaline Casts 3-5 Influenza Type A (PCR) NEGATIVE Influenza Type B (PCR) NEGATIVE RSV RNA Qual (PCR) NEGATIVE SARS-CoV-2 RNA (RT-PCR) NEGATIVE Assessment and Plan (1) Sepsis: Status: Acute (2) Cellulitis: Status: Acute Plan This is a 44-year-old male with pertinent history of allergic rhinitis who presents to the emergency department for evaluation of left groin pain. #. Sepsis due to left inguinal infection: Resuscitated with IV crystalloids. Lactic acid and blood culture obtained. Initiating IV vancomycin. Imaging suggestive of cellulitis with reactive nodes. Consider General surgery consult if symptoms do not improve #. Obesity: Diet and exercise Med rec pending DVT prophylaxis: Lovenox Full code Admit as inpatient and will require two night minimum hospital stay for IV antibiotics (as above), which is not possible in a lesser acute setting. Quality Stroke Does the patient have a stroke diagnosis?: No VTE Prior VTE?: No VTE Risk Level:: Medical - moderate - high VTE Device Contraindication: Treatment Not Indicated VTE Drug Contraindication: N/A - Med Ordered
[2025-03-06] MEDS: vancomycin/NS 2,000 MG/500 ML PLAST..BAG 250 MG IV (00:57)
[2025-03-06] MEDS: Acetaminophen 325 MG TABLET 650 MG PO ×3 (01:02→22:58)
[2025-03-06] MEDS: Morphine Sulfate 4 MG/ML CARTRIDGE IVPUSH ×3 (03:18→12:35)
[2025-03-06] MEDS: Acetaminophen 1,000 MG/100 ML PIGGYBACK 400 MG IV (04:29)
[2025-03-06 05:37] LABS: MANUAL DIFF FLAG NO
[2025-03-06 05:39] LABS: Basophils Percent Auto 0.2 % (0-2); Eosinophils Percent Auto 0.1 % (0-4); Hematocrit 38.6 % (42.0-52.0); Hemoglobin 12.4 g/dl (14.0-18.0); Imm Gran Abs Auto 0.15 X10*3/uL (0.00-0.03); Imm Gran Pct Auto 0.9 % (0.0-0.4); Lymphocytes Absolute Auto 0.8 X10*3/uL (1.2-4.9); Lymphocytes Percent Auto 4.7 % (20-40); Mean Corpuscular HGB Conc 32.1 g/dl (31.0-36.0); Mean Corpuscular Hemoglobin 26.8 pg (27.0-33.0); Mean Corpuscular Volume 83.5 fL (80.0-98.0); Mean Platelet Volume 9.6 fL (9.4-12.4); Monocytes Absolute Auto 0.8 X10*3/uL (0.1-1.2); Monocytes Percent Auto 5.1 % (2-11); Neutrophils Absolute Auto 14.4 x10*3/uL (2.0-8.3); Platelet Count 205 X10*3/uL (160-400); Red Blood Count 4.62 X10*6/uL (4.60-5.80); White Blood Count 16.2 X10*3/uL (4.8-10.8)
[2025-03-06 05:53] LABS: Anion Gap 12 (12-20); Blood Urea Nitrogen 14 mg/dL (9-16); Calcium 8.2 mg/dL (8.4-10.2); Carbon Dioxide 24 mmol/L (22-29); Chloride 105 mmol/L (96-108); Creatinine Clr Calc Pharmacy 97.9; Estimated Glomerular Filt Rate > 60; Glucose Random 103 mg/dL (60-115); Potassium 3.8 mmol/L (3.3-5.1); Sodium 137 mmol/L (135-145)
--- NOTE | 2025-03-06 07:35 | PHA.PROG ---
Admission Date/Time: March 06, 2025 00:32 Indication: sepsis Weight in k.5 kg Adjusted body weight in Kg: [place] body weight in Kg: Obesity Dosing Indication % IBW: Serum Creatinine - Last 168 Hours 03/05/25 03/06/25 18:52 05:16 Creatinine 1.13 1.25 Estimated CrCl and GFR - Last 168 Hours 03/05/25 03/06/25 18:52 05:16 Estim Creat Clear Calc 108.3 97.9 Estimated GFR > 60 > 60 Vancomycin Loading Dose: 2000mg x 1 Current Vancomycin Dosing Regimen: 1000mg Q12H Vancomycin Monitoring using AUC goal of 400 - 600 range with trough as surrogate marker: 489 mg/L Date and Time for next Vancomycin Level to be drawn: 03/07 @0900 Pharmacist Comments on Vancomycin Plan: Predicted trough of 16.6 mg/L. Will continue to monitor and adjust as necessary Vancomycin dosing will take advantage of [employer] as a clinical decision support tool that uses Bayesian modeling to calculate individual patient's pharmacokinetic parameters and forecast the patient's drug concentration time course with the target goal AUC 24 range of 400 - 600 mg/L/hr.
--- NOTE | 2025-03-06 07:55 | HO.PM.IMPN ---
Subjective Subjective Date of Service: 03/06/25 Interval History: f/u on sepsis d/t cellulitis and abscess of the groin Physical Exam Vital Signs: Vital Signs: Last Vital Signs Temp 99.4 F 03/06/25 04:58 Pulse 96 03/06/25 04:58 Resp 20 03/06/25 04:58 BP 105/68 03/06/25 04:58 Pulse Ox 95 03/06/25 04:58 O2 Del Method Room Air 03/06/25 04:58 BMI result Body Mass Index 34.5 General: AO X 3, no acute distress Resp: CTA bilateral CVS: S1,S2,RRR GI: +BS, NT, no distention Skin: No rash Neuro: motor grossly intact Psych: appropriate affect Objective Data Active Medications Acetaminophen (Acetaminophen 325 Mg Tablet) 650 mg PO Q6H PRN PRN Reason: Pain, Mild 1-3,fever,headache Last Admin: 03/06/25 01:02 Dose: 650 mg Documented By: GORDON Calcium Carbonate (Calcium Carbonate 750 Mg Tab.Chew) 750 mg PO Q4H PRN PRN Reason: Heartburn Enoxaparin Sodium (Enoxaparin Sodium 40 Mg/0.4 Ml Syringe) 40 mg SUBCUT Q24H [facility] Vancomycin HCl 1,000 mg/ (Sodium Chloride) 270 mls @ 270 mls/hr IV Q12H [facility] Magnesium Hydroxide (Milk Of Magnesia 30 Ml Oral.Susp) 30 ml PO DAILY PRN PRN Reason: Constipation Melatonin (Melatonin 3 Mg Tablet) 6 mg PO BEDTIME PRN PRN Reason: Insomnia Morphine Sulfate (Morphine Sulfate 4 Mg/Ml Cartridge) 4 mg IVPUSH Q4H PRN; Protocol PRN Reason: Pain, Severe (Pain Scale 7-10) Last Admin: 03/06/25 03:18 Dose: 4 mg Documented By: GORDON Ondansetron HCl (Ondansetron Hcl 4 Mg/2 Ml Vial) 4 mg IVPUSH Q8H PRN PRN Reason: Nausea and Vomiting Pharmacy Consult (Consult Rx Vancomycin Dosing) 1 each MISCELLANE DAILY PRN PRN Reason: Consult order Sodium Chloride (0.9 % Sodium Chloride Flush 3 Ml Syringe) 3 ml IVFLUSH QSHIFT [facility] Labs 03/06/25 05:16 03/06/25 05:16 Labs: Laboratory Results - last 24 hr 03/05/25 03/05/25 03/05/25 18:52 21:30 22:09 MCV 82.6 MCH 26.8 L MCHC 32.4 RDW 13.5 Plt Count 234 MPV 9.0 L Immature Gran % (Auto) 0.9 H Neut % (Auto) 89.6 H Lymph % (Auto) 3.1 L [place] % (Auto) 6.1 Eos % (Auto) 0.1 Baso % (Auto) 0.2 Lymph # (Auto) 0.5 L [place] # (Auto) 0.9 Eos # (Auto) 0.0 Baso # (Auto) 0.0 Abs Immat Gran (auto) 0.13 H Absolute Neuts (auto) 12.9 H Absolute Nucleated RBC 0.000 Nucleated RBC % (auto) 0.0 Anion Gap 13 Estim Creat Clear Calc 108.3 Estimated GFR > 60 Random Glucose 113 Lactic Acid 2.1 H* Lactic Acid F/U @ 2Hr 1.2 Calcium 9.1 Total Bilirubin 0.9 AST 39 H ALT 64 H Alkaline Phosphatase 60 Total Protein 7.2 Albumin 4.4 Urine Color Yellow Urine Appearance Clear Urine pH 5.5 Ur Specific [place] >= 1.030 H Urine Protein Negative Urine Glucose (UA) Negative Urine Ketones Negative Urine Blood Negative Urine Nitrite Negative Ur Leukocyte Esterase Trace H Urine RBC 0-2 Urine WBC 0-5 Ur Squamous Epith Cells 0-2 Urine Bacteria None Seen Hyaline Casts 3-5 Influenza Type A (PCR) NEGATIVE Influenza Type B (PCR) NEGATIVE RSV RNA Qual (PCR) NEGATIVE SARS-CoV-2 RNA (RT-PCR) NEGATIVE 03/06/25 05:16 MCV 83.5 MCH 26.8 L MCHC 32.1 RDW 14.0 Plt Count 205 MPV 9.6 Immature Gran % (Auto) 0.9 H Neut % (Auto) 89.0 H Lymph % (Auto) 4.7 L [place] % (Auto) 5.1 Eos % (Auto) 0.1 Baso % (Auto) 0.2 Lymph # (Auto) 0.8 L [place] # (Auto) 0.8 Eos # (Auto) 0.0 Baso # (Auto) 0.0 Abs Immat Gran (auto) 0.15 H Absolute Neuts (auto) 14.4 H Absolute Nucleated RBC 0.000 Nucleated RBC % (auto) 0.0 Anion Gap 12 Estim Creat Clear Calc 97.9 Estimated GFR > 60 Random Glucose 103 Lactic Acid Lactic Acid F/U @ 2Hr Calcium 8.2 L D Total Bilirubin AST ALT Alkaline Phosphatase Total Protein Albumin Urine Color Urine Appearance Urine pH Ur Specific [place] Urine Protein Urine Glucose (UA) Urine Ketones Urine Blood Urine Nitrite Ur Leukocyte Esterase Urine RBC Urine WBC Ur Squamous Epith Cells Urine Bacteria Hyaline Casts Influenza Type A (PCR) Influenza Type B (PCR) RSV RNA Qual (PCR) SARS-CoV-2 RNA (RT-PCR) Assessment and Plan (1) Cellulitis: Status: Acute (2) Sepsis: Status: Acute Plan 44-year-old male with a history of allergic rhinitis presents to the emergency department with left groin pain. Sepsis secondary to left inguinal infection Patient resuscitated with IV crystalloids Lactic acid has normalized, Initiated IV vancomycin, add Ceftriaxone Imaging consistent with cellulitis and reactive lymphadenopathy Recommend general surgery consult if no clinical improvement Obesity Advise dietary modifications and regular exercise Lactic acidosis DVT prophylaxis: Lovenox Full code Admit as inpatient and will require two night minimum hospital stay for IV antibiotics (as above), which is not possible in a lesser acute setting. Quality Stroke Does the patient have a stroke diagnosis?: No VTE Prior VTE?: No VTE Risk Level:: Medical - moderate - high VTE Device Contraindication: Treatment Not Indicated VTE Drug Contraindication: N/A - Med Ordered
[2025-03-06] MEDS: Enoxaparin Sodium 40 MG/0.4 ML SYRINGE SUBCUT (07:57)
[2025-03-06] MEDS: 0.9 % Sodium Chloride Flush 3 ML SYRINGE IVFLUSH ×2 (07:58→22:58)
--- NOTE | 2025-03-06 08:31 | PHA.MEDREC ---
Addendum entered by Beth Gomez RPh 03/06/25 10:48: [facility] reviewed Original Note: Pharmacy Consult ? Medication Reconciliation Pharmacy has completed the medication reconciliation. Spoke to pt to confirm meds.
--- NOTE | 2025-03-06 11:20 | PC.NURSE ---
Pt will be proceeding to ED Overflow unit. Call placed to RN Allyssa for RN to RN report. Allyssa given opportunity for questions and all questions answered to satisfaction. Will contact transport.
--- NOTE | 2025-03-06 11:35 | PC.NURSE ---
Report received from FINESSE Mancuso. Taken over care at this time.
--- NOTE | 2025-03-06 11:45 | PC.NURSE ---
Pt. arrived to room ed overflow 4 at this time.
[2025-03-06] MEDS: Ciprofloxacin Lactate/D5W 400 MG/200 ML PIGGYBACK 200 MG IV (12:26)
--- NOTE | 2025-03-06 12:47 | PC.NURSE ---
Pt. sitting up and watching tv, eating his lunch, informed pt on plan of care. Pt. has some pain but Morphine given for pain. Call gonzales within reach. All needs met at this time.
[2025-03-06] MEDS: Milk of Magnesia 30 ML ORAL.SUSP PO (16:45)
--- NOTE | 2025-03-06 16:59 | PC.NURSE ---
Informed MD Arias that pt. has exceeded acetaminophen max dose at this time. Awaiting orders from MD. Informed pt on this information, applied ice packs to pt.
--- NOTE | 2025-03-06 17:16 | PC.NURSE ---
Spoke to Lev Campos, okay to give tylenol dose even thought it states max excedded. Informed MD Arias as well.
--- NOTE | 2025-03-06 22:39 | PC.NURSE ---
Addendum entered by Krystle Wilkins RN 03/06/25 23:05: amend to previous note, both ABX s are an IV route. Original Note: Patient admitted to room 368 via bed from ED unit with left groin pain. Patient a/o x3, color good, skin w/d, lung dumont clear, gait steady, voided in br, last BMT. admission completed and upon skin inspection it was noted that left groin area was with slight warmth to touch, tender, and with redness. Patient and at bedside stated area was painful and that is why he came to ED, however, the redness is now new. Will continue to monitor and noted patient is receiving both IV ABX and PO ABX. See ct scan and ED notes.
[2025-03-06] MEDS: vancomycin HCL 1,000 MG in 0.9 % Sodium Chloride 250 ML 270 MG IV (22:57)
[2025-03-07] MEDS: Ciprofloxacin Lactate/D5W 400 MG/200 ML PIGGYBACK 200 MG IV ×2 (00:05→12:43)
[2025-03-07 00:07] VITALS: TEMP 37.2
[2025-03-07 03:26] VITALS: BP 133/68; PULSE 75; RESP 20; TEMP 37.3; O2SAT 94
[2025-03-07] MEDS: Morphine Sulfate 4 MG/ML CARTRIDGE IVPUSH ×3 (05:42→13:45)
[2025-03-07 07:06] LABS: Creatinine Clr Calc Pharmacy 110.6; Estimated Glomerular Filt Rate > 60
[2025-03-07 07:10] LABS: Hematocrit 40.5 % (42.0-52.0); Hemoglobin 12.7 g/dl (14.0-18.0); Mean Corpuscular HGB Conc 31.4 g/dl (31.0-36.0); Mean Corpuscular Hemoglobin 26.6 pg (27.0-33.0); Mean Corpuscular Volume 84.9 fL (80.0-98.0); Platelet Count 207 X10*3/uL (160-400); Red Blood Count 4.77 X10*6/uL (4.60-5.80); Red Cell Distribution Width 14.1 % (11.0-16.0); White Blood Count 17.9 X10*3/uL (4.8-10.8)
[2025-03-07 07:35] VITALS: BP 130/69; PULSE 82; RESP 20; TEMP 37.4; O2SAT 93
--- NOTE | 2025-03-07 08:07 | HO.PM.IMPN ---
Subjective Subjective Date of Service: 03/07/25 Interval History: f/u on sepsis d/t cellulitis and lymphadenitis of the lef groin, more painful and area now looks red, swollen and tender Physical Exam Vital Signs: Vital Signs: Last Vital Signs Temp 99.4 F 03/07/25 07:35 Pulse 82 03/07/25 07:35 Resp 20 03/07/25 07:35 BP 130/69 03/07/25 07:35 Pulse Ox 93 03/07/25 07:35 O2 Del Method Room Air 03/07/25 07:35 BMI result Body Mass Index 34.8 General: AO X 3, no acute distress Resp: CTA bilateral CVS: S1,S2,RRR GI: +BS, NT, no distention Skin: erythema and tenderness of the left groin area, Neuro: motor grossly intact Psych: appropriate affect Objective Data Active Medications Acetaminophen (Acetaminophen 325 Mg Tablet) 650 mg PO Q6H PRN PRN Reason: Pain, Mild 1-3,fever,headache Last Admin: 03/06/25 22:58 Dose: 650 mg Documented By: TRESA Calcium Carbonate (Calcium Carbonate 750 Mg Tab.Chew) 750 mg PO Q4H PRN PRN Reason: Heartburn Enoxaparin Sodium (Enoxaparin Sodium 40 Mg/0.4 Ml Syringe) 40 mg SUBCUT Q24H [facility] Last Admin: 03/06/25 07:57 Dose: 40 mg Documented By: HUBERT Vancomycin HCl 1,000 mg/ (Sodium Chloride) 270 mls @ 270 mls/hr IV Q12H [facility] Last Infusion: 03/06/25 23:57 Dose: Infused Documented By: TRESA Ciprofloxacin (Cipro) 400 mg in 200 mls @ 200 mls/hr IV Q12H [facility] Last Infusion: 03/07/25 01:05 Dose: Infused Documented By: TRESA Magnesium Hydroxide (Milk Of Magnesia 30 Ml Oral.Susp) 30 ml PO DAILY PRN PRN Reason: Constipation Last Admin: 03/06/25 16:45 Dose: 30 ml Documented By: ELGIN Melatonin (Melatonin 3 Mg Tablet) 6 mg PO BEDTIME PRN PRN Reason: Insomnia Morphine Sulfate (Morphine Sulfate 4 Mg/Ml Cartridge) 4 mg IVPUSH Q4H PRN; Protocol PRN Reason: Pain, Severe (Pain Scale 7-10) Last Admin: 03/07/25 05:42 Dose: 4 mg Documented By: TRESA Ondansetron HCl (Ondansetron Hcl 4 Mg/2 Ml Vial) 4 mg IVPUSH Q8H PRN PRN Reason: Nausea and Vomiting Pharmacy Consult (Consult Rx Vancomycin Dosing) 1 each MISCELLANE DAILY PRN PRN Reason: Consult order Polyethylene Glycol (Polyethylene Glycol 3350 17 Gm Powd.Pack) 17 gm PO DAILY PRN PRN Reason: Constipation Sodium Chloride (0.9 % Sodium Chloride Flush 3 Ml Syringe) [facility] Last Admin: 03/06/25 22:58 Dose: 3 ml Documented By: TRESA Labs 03/07/25 05:52 03/07/25 05:52 Labs: Laboratory Results - last 24 hr 03/07/25 05:52 MCV 84.9 MCH 26.6 L MCHC 31.4 RDW 14.1 Plt Count 207 MPV 10.0 Absolute Nucleated RBC 0.000 Nucleated RBC % (auto) 0.0 Estim Creat Clear Calc 110.6 Estimated GFR > 60 Microbiology Microbiology Results: Microbiology 03/05/25 18:52 Blood Culture - Preliminary Blood - Venous No growth after 24 hours. 03/05/25 18:52 Blood Culture - Preliminary Blood - Venous No growth after 24 hours. Assessment and Plan (1) Cellulitis: Status: Acute (2) Sepsis: Status: Acute Plan 44-year-old male with a history of allergic rhinitis presents to the emergency department with left groin pain. Sepsis secondary to left inguinal lymphadenitis, looks worse, WBC increase Continue IV Vanco and Cipro, has pen allergy blood cultures negaive ID consult, may need repeat imaging Tyelenol and morphine for pain Obesity Advise dietary modifications and regular exercise Lactic acidosis DVT prophylaxis: Lovenox Full code Admit as inpatient and will require two night minimum hospital stay for IV antibiotics (as above), which is not possible in a lesser acute setting. Quality Stroke Does the patient have a stroke diagnosis?: No VTE Prior VTE?: No VTE Risk Level:: Medical - moderate - high VTE Device Contraindication: Treatment Not Indicated VTE Drug Contraindication: N/A - Med Ordered
[2025-03-07] MEDS: 0.9 % Sodium Chloride Flush 3 ML SYRINGE IVFLUSH (08:31)
[2025-03-07] MEDS: Enoxaparin Sodium 40 MG/0.4 ML SYRINGE SUBCUT (08:33)
--- NOTE | 2025-03-07 08:46 | MHC.CM.PN ---
patient lives with his . He is independent with all functional mobility. Patient does not have a PCP. The [facility] MD brochure was provided. A copy of his HCP has been requested. DP home self care. Patients will provide transportation home at discharge.
--- NOTE | 2025-03-07 09:26 | HE.PHANOTE ---
RE: edwin Accidentally entered order to start at 2300 instead of 1100 on 03/06 so level on 03/07 is subtherapeutic. Increased dose to 1250mg Q8H with predicted trough of 15.5 mg/L, AUC of 519 mg/L. Next level to be drawn 03/08 @0800
[2025-03-07] MEDS: vancomycin HCL 1,250 MG in 0.9 % Sodium Chloride 250 ML 166.67 MG IV (09:49)
[2025-03-07] MEDS: Linezolid/D5W 600 MG/300 ML PIGGYBACK 300 MG IV ×2 (11:38→20:47)
[2025-03-07] MEDS: Ibuprofen 600 MG TABLET PO (11:38)
[2025-03-07 15:14] VITALS: BP 113/71; PULSE 60; RESP 18; TEMP 36.3; O2SAT 93
[2025-03-07 19:05] VITALS: BP 122/77; PULSE 59; RESP 16; TEMP 36.2; O2SAT 96
[2025-03-08] MEDS: Ciprofloxacin Lactate/D5W 400 MG/200 ML PIGGYBACK 200 MG IV ×3 (00:10→23:49)
[2025-03-08] MEDS: 0.9 % Sodium Chloride Flush 3 ML SYRINGE IVFLUSH ×4 (00:17→23:49)
--- NOTE | 2025-03-08 01:26 | PC.NURSE ---
Patient reports feeling much better, he states hes noticed a difference since antibiotics changed. He stated he has not had any further headache, and can move about better as he feels less exhausted and also attributes this to less redness and swelling. Anxious for discharge. at bedside for the night.
[2025-03-08 03:43] VITALS: BP 117/58; PULSE 66; RESP 17; TEMP 36.6; O2SAT 96
[2025-03-08 06:13] LABS: Hematocrit 40.6 % (42.0-52.0); Hemoglobin 12.7 g/dl (14.0-18.0); Mean Corpuscular HGB Conc 31.3 g/dl (31.0-36.0); Mean Corpuscular Hemoglobin 26.5 pg (27.0-33.0); Mean Corpuscular Volume 84.6 fL (80.0-98.0); Mean Platelet Volume 10.1 fL (9.4-12.4); Platelet Count 231 X10*3/uL (160-400); Red Cell Distribution Width 13.9 % (11.0-16.0); White Blood Count 14.7 X10*3/uL (4.8-10.8)
[2025-03-08 06:30] LABS: Creatinine Clr Calc Pharmacy 102.3; Estimated Glomerular Filt Rate > 60
[2025-03-08 07:21] VITALS: BP 123/64; PULSE 67; RESP 16; TEMP 37; O2SAT 94
[2025-03-08] MEDS: Linezolid/D5W 600 MG/300 ML PIGGYBACK 300 MG IV ×2 (08:07→21:16)
[2025-03-08] MEDS: Enoxaparin Sodium 40 MG/0.4 ML SYRINGE SUBCUT (08:07)
[2025-03-08] MEDS: Ibuprofen 600 MG TABLET PO ×2 (09:14→21:12)
--- NOTE | 2025-03-08 13:10 | P.CNID_ITS ---
History of Present Illness Data of Consult Service Date: 03/08/25 Requesting physician: Philly Kline Primary Care Provider: Unknown Physician HPI Reason for consult: left sided abdominal discomfort He presents with left abdominal 6/10 discomfort worsening over last three days centered in groin area. He has no fever or chills. He has red streaking in groin area. He has no bacteremia. u/s shows left epidydimitis and CT abdomen and pelvis shows some cellulitis over groin area. He denies injury to area and denies STIs or symptoms such as burning or discharge. Review of Systems 2 Review of Systems: Yes all other systems are reviewed and are negative PMFSH Past Medical History Medical History Plantar fasciitis Need for Tdap vaccination Seasonal allergies Allergic rhinitis Anxiety Family history of colon cancer in father Colon cancer screening Nephrotic syndrome Family History Family History Father Colon cancer Mother No problems noted. Son Seizures Asthma Allergy Maternal Grandmother No problems noted. Maternal Grandfather No problems noted. Daughter No problems noted. Daughter No problems noted. 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 Meds Allergies Allergy/AdvReac Type Severity Reaction Status Date / Time naproxen [NAPROXEN] Allergy Severe Angioedema Verified 03/05/25 18:32 Penicillins [PENICILLINS] Allergy Severe ANAPHYLAXIS Verified 03/05/25 18:32 amoxicillin Allergy Intermediate Hives Verified 03/05/25 18:32 [place] [employer] Allergy Hives Verified 03/05/25 18:32 Active Medications: Current Medications Acetaminophen (Acetaminophen 325 Mg Tablet) 650 mg PO Q6H PRN PRN Reason: Pain, Mild 1-3,fever,headache Last Admin: 03/06/25 22:58 Dose: 650 mg Calcium Carbonate (Calcium Carbonate 750 Mg Tab.Chew) 750 mg PO Q4H PRN PRN Reason: Heartburn Enoxaparin Sodium (Enoxaparin Sodium 40 Mg/0.4 Ml Syringe) 40 mg SUBCUT Q24H [facility] Last Admin: 03/08/25 08:07 Dose: 40 mg Ciprofloxacin (Cipro) 400 mg in 200 mls @ 200 mls/hr IV Q12H [facility] Last Infusion: 03/08/25 12:39 Dose: Infused Linezolid (Zyvox/D5w) 600 mg in 300 mls @ 300 mls/hr IV BID [facility] Last Infusion: 03/08/25 09:08 Dose: Infused Ibuprofen (Ibuprofen 600 Mg Tablet) 600 mg PO Q6H PRN PRN Reason: Fever >100.4 Last Admin: 03/08/25 09:14 Dose: 600 mg Magnesium Hydroxide (Milk Of Magnesia 30 Ml Oral.Susp) 30 ml PO DAILY PRN PRN Reason: Constipation Last Admin: 03/06/25 16:45 Dose: 30 ml Melatonin (Melatonin 3 Mg Tablet) 6 mg PO BEDTIME PRN PRN Reason: Insomnia Morphine Sulfate (Morphine Sulfate 4 Mg/Ml Cartridge) 4 mg IVPUSH Q4H PRN; Protocol PRN Reason: Pain, Severe (Pain Scale 7-10) Last Admin: 03/07/25 13:45 Dose: 4 mg Ondansetron HCl (Ondansetron Hcl 4 Mg/2 Ml Vial) 4 mg IVPUSH Q8H PRN PRN Reason: Nausea and Vomiting Oxycodone HCl (Oxycodone Hcl Immed Release 5 Mg Tablet) 5 mg PO Q6H PRN PRN Reason: Pain, Moderate(Pain Scale 4-6) Polyethylene Glycol (Polyethylene Glycol 3350 17 Gm Powd.Pack) 17 gm PO DAILY PRN PRN Reason: Constipation Sodium Chloride (0.9 % Sodium Chloride Flush 3 Ml Syringe) 3 ml IVFLUSH QSHIFT [facility] Last Admin: 03/08/25 08:07 Dose: 3 ml Home Medications ?Medication ?Instructions ?Recorded ?Confirmed ?Last Taken ?Type acetaminophen 325 mg tablet 650 mg PO Q6H PRN Pain 03/06/25 03/06/25 Unknown History (Tylenol) ibuprofen 200 mg tablet 400 mg PO Q8H PRN Pain 03/06/25 03/06/25 Unknown History polyethylene glycol 3350 17 gram 17 g PO DAILY PRN Constipation 03/06/25 03/06/25 Unknown History oral powder packet (Miralax) Physical Exam 2 Vital Signs: Vital Signs: Last Vital Signs Temp 98.6 F 03/08/25 07:21 Pulse 67 03/08/25 07:21 Resp 16 03/08/25 07:21 BP 123/64 03/08/25 07:21 Pulse Ox 94 03/08/25 07:21 O2 Del Method Room Air 03/08/25 07:21 BMI result Body Mass Index 34.8 Skin: Other: redness over lower abdomen,skin streaking no testicle masses reported on exam Results Labs 03/08/25 05:40 03/08/25 05:40 Labs: Short CBC 03/08/25 Range/Units 05:40 WBC 14.7 H (4.8-10.8) X10*3/uL Hgb 12.7 L (14.0-18.0) g/dl Hct 40.6 L (42.0-52.0) % Plt Count 231 (160-400) X10*3/uL BMP 03/08/25 05:40 Creatinine 1.20 Microbiology Microbiology Results: Microbiology 03/05/25 18:52 Blood - Venous Blood Culture - Preliminary No growth after 48 hours. 03/05/25 18:52 Blood - Venous Blood Culture - Preliminary No growth after 48 hours. Assessment and Plan (1) Sepsis: Status: Acute (2) Cellulitis: Status: Acute Plan He has probable gram negative epidydimitis and also some lymphadenitis left groin possibly leading to gram positive cellulitis in area by means of decreasing lymphatic flow. Doubt lymphoma,doubt syphilis or HIV. Suggest check syphiliis,consider check HIV. Po Cipro or levaquin plus linezolid for total 10 day. Follow Urology outpatient.
--- NOTE | 2025-03-08 13:46 | MHC.CM.PN ---
Per MD rounds patient will be ready to discharge tomorrow. ID consult recommends PO ABX @ DC. DP Home self care. Patient will arrange for transportation home.
[2025-03-08 15:08] VITALS: BP 123/65; PULSE 74; RESP 18; TEMP 36.2; O2SAT 95
--- NOTE | 2025-03-08 16:31 | P.PNIM_ITS ---
Subjective Subjective Date of Service: 03/08/25 Interval History: Feeling better this morning, less groin discomfort, no fevers, no chills denies penile discharge No similar symptoms in the past No urinary symptoms of urgency, no frequency, no acute events overnight Review of Systems All other system reviewed and are negative Physical Exam 2 Vital Signs: Vital Signs: Last Vital Signs Temp 97.2 F 03/08/25 15:08 Pulse 74 03/08/25 15:08 Resp 18 03/08/25 15:08 BP 123/65 03/08/25 15:08 Pulse Ox 95 03/08/25 15:08 O2 Del Method Room Air 03/08/25 15:08 BMI result Body Mass Index 34.8 Const: Other: General: AO X 3, no acute distress No JVD Resp: CTA bilateral CVS: S1,S2,RRR GI: +BS, NT, no distention Skin: erythema and mild tenderness of the left groin area, normal scrotal examination no swelling Neuro: motor grossly intact Psych: appropriate affect Objective Data Active Medications Acetaminophen (Acetaminophen 325 Mg Tablet) 650 mg PO Q6H PRN PRN Reason: Pain, Mild 1-3,fever,headache Last Admin: 03/06/25 22:58 Dose: 650 mg Documented By: TRESA Calcium Carbonate (Calcium Carbonate 750 Mg Tab.Chew) 750 mg PO Q4H PRN PRN Reason: Heartburn Enoxaparin Sodium (Enoxaparin Sodium 40 Mg/0.4 Ml Syringe) 40 mg SUBCUT Q24H [facility] Last Admin: 03/08/25 08:07 Dose: 40 mg Documented By: JOSH Ciprofloxacin (Cipro) 400 mg in 200 mls @ 200 mls/hr IV Q12H [facility] Last Infusion: 03/08/25 12:39 Dose: Infused Documented By: JOSH Linezolid (Zyvox/D5w) 600 mg in 300 mls @ 300 mls/hr IV BID [facility] Last Infusion: 03/08/25 09:08 Dose: Infused Documented By: JOSH Ibuprofen (Ibuprofen 600 Mg Tablet) 600 mg PO Q6H PRN PRN Reason: Fever >100.4 Last Admin: 03/08/25 09:14 Dose: 600 mg Documented By: JOSH Magnesium Hydroxide (Milk Of Magnesia 30 Ml Oral.Susp) 30 ml PO DAILY PRN PRN Reason: Constipation Last Admin: 03/06/25 16:45 Dose: 30 ml Documented By: ELGIN Melatonin (Melatonin 3 Mg Tablet) 6 mg PO BEDTIME PRN PRN Reason: Insomnia Morphine Sulfate (Morphine Sulfate 4 Mg/Ml Cartridge) 4 mg IVPUSH Q4H PRN; Protocol PRN Reason: Pain, Severe (Pain Scale 7-10) Last Admin: 03/07/25 09:45 Dose: 4 mg Documented By: RIA Ondansetron HCl (Ondansetron Hcl 4 Mg/2 Ml Vial) 4 mg IVPUSH Q8H PRN PRN Reason: Nausea and Vomiting Oxycodone HCl (Oxycodone Hcl Immed Release 5 Mg Tablet) 5 mg PO Q6H PRN PRN Reason: Pain, Moderate(Pain Scale 4-6) Polyethylene Glycol (Polyethylene Glycol 3350 17 Gm Powd.Pack) 17 gm PO DAILY PRN PRN Reason: Constipation Sodium Chloride (0.9 % Sodium Chloride Flush 3 Ml Syringe) [facility] Last Admin: 03/08/25 15:24 Dose: 3 ml Documented By: JOSH Labs 03/08/25 05:40 03/08/25 05:40 Labs: Laboratory Results - last 24 hr 03/08/25 05:40 MCV 84.6 MCH 26.5 L MCHC 31.3 RDW 13.9 Plt Count 231 MPV 10.1 Absolute Nucleated RBC 0.000 Nucleated RBC % (auto) 0.0 Estim Creat Clear Calc 102.3 Estimated GFR > 60 Microbiology Microbiology Results: Microbiology 03/05/25 18:52 Blood Culture - Preliminary Blood - Venous No growth after 48 hours. 03/05/25 18:52 Blood Culture - Preliminary Blood - Venous No growth after 48 hours. Assessment and Plan (1) Sepsis: Status: Acute (2) Cellulitis: Status: Acute Plan 44-year-old male with a history of allergic rhinitis presents to the emergency department with left groin pain. Sepsis secondary to left epididymitis and some left groin lymphadenitis, Feeling better WBC trending down less pain and redness Ultrasound showed left epididymitis On IV linezolid and IV Cipro blood cultures negaive Seen by ID she suggest to check syphilis and HIV, and recommend by mouth Levaquin or cipro plus linezolid for 10 days and outpatient urology follow-up. Class 1 Obesity Advise dietary modifications and regular exercise Acute Lactic acidosis resolved DVT prophylaxis: Lovenox Full code Will require continued inpatient hospitalization for IV antibiotics and further testing Quality Stroke Does the patient have a stroke diagnosis?: No VTE Prior VTE?: No VTE Risk Level:: Medical - moderate - high VTE Device Contraindication: Treatment Not Indicated VTE Drug Contraindication: N/A - Med Ordered
[2025-03-08 19:04] VITALS: BP 123/68; PULSE 60; RESP 20; TEMP 36.5; O2SAT 96
[2025-03-09 03:22] VITALS: BP 114/70; PULSE 60; RESP 18; TEMP 36.3; O2SAT 96
[2025-03-09 06:21] LABS: Hematocrit 40.4 % (42.0-52.0); Hemoglobin 12.8 g/dl (14.0-18.0); Mean Corpuscular HGB Conc 31.7 g/dl (31.0-36.0); Mean Corpuscular Hemoglobin 26.6 pg (27.0-33.0); Mean Platelet Volume 9.9 fL (9.4-12.4); Platelet Count 264 X10*3/uL (160-400); Red Blood Count 4.81 X10*6/uL (4.60-5.80); White Blood Count 11.4 X10*3/uL (4.8-10.8)
[2025-03-09 06:34] LABS: Creatinine Clr Calc Pharmacy 126.6; Estimated Glomerular Filt Rate > 60
[2025-03-09 06:52] LABS: HIV AB/AG Nonreactive (Nonreactive); HIV Num 1 0.05 S/CO (0.00-0.99); Syphilis Screen Nonreactive (Nonreactive)
[2025-03-09 07:25] VITALS: BP 110/70; PULSE 60; RESP 18; TEMP 36.1; O2SAT 95
[2025-03-09] MEDS: Enoxaparin Sodium 40 MG/0.4 ML SYRINGE SUBCUT (08:05)
[2025-03-09] MEDS: 0.9 % Sodium Chloride Flush 3 ML SYRINGE IVFLUSH (08:05)
[2025-03-09] MEDS: Linezolid/D5W 600 MG/300 ML PIGGYBACK 300 MG IV (08:05)
--- NOTE | 2025-03-09 10:52 | PM.DS ---
DS: Providers Provider Date of Service: 03/09/25 Date of admission: 03/06/25 00:32 Date of discharge: 03/09/25 Primary care physician: Unknown Physician Consults: 03/07/25 09:56 Consult to Infectious Diseases Routine Consulting Provider[place] [facility] Reason for consultation: lymphadenitis DS: Diagnosis Discharge Diagnosis (1) Sepsis: Status: Acute (2) Cellulitis: Status: Acute DS: Summary Hospital Course Hospital Course: History of presenting illness: Date of Service: 03/06/25 Chief Complaint: Groin pain This is a 44-year-old male with pertinent history of allergic rhinitis who presents to the emergency department for evaluation of left groin pain. Patient states his symptoms started 1 day prior to presentation. He has been having left lower abdominal discomfort and left groin pain that started 1 day ago which has been constant, nonradiating and without any relieving factors. Also has associated fevers and chills with headache at home. Patient states about 2 weeks ago he had a GI bug, noticed black stools but since then the diarrhea and black stool have resolved. Does have family history of colon cancer. No trauma or history abdominal surgery. No chest pain, palpitations, shortness of breath, changes in urinary or bowel habits. In the emergency department, imaging suggestive of left inguinal cellulitis. Found to be febrile with temp 102.7 degrees and leukocytosis at 14.4. Hospital course: 44-year-old male with a history of allergic rhinitis presents to the emergency department with left groin pain and diagnosed to have Sepsis secondary to left epididymitis and some left groin lymphadenitis/cellulitis, Scrotal Ultrasound showed left epididymitis, blood cultures x2 showed no growth patient treated with IV Cipro and IV linezolid , HIV and RPR negative seen by infectious disease, she recommend 10 days of linezolid plus Levaquin Recommend to avoid strenuous activity left leg and to have outpatient follow-up with Urology in 2-3 weeks, WBC improved, lactic acidosis resolved,and significant improvement in swelling and redness noted. Class 1 Obesity Advise dietary modifications and regular exercise. Acute Lactic acidosis resolved. Time Attestation Discharge Coordination Time (in mins): 40 Quality: Safe Use of Opioids Does Pt have an Active Cancer Diagnosis on the Problem List?: No Quality: Stroke Does the patient have a stroke diagnosis?: No Physical Exam Vital Signs: Vital Signs: Last Vital Signs Temp 96.9 F 03/09/25 07:25 Pulse 60 03/09/25 07:25 Resp 18 03/09/25 07:25 BP 110/70 03/09/25 07:25 Pulse Ox 95 03/09/25 07:25 O2 Del Method Room Air 03/09/25 07:25 BMI result Body Mass Index 34.8 Const: Other: General: AO X 3, no acute distress No JVD Resp: CTA bilateral CVS: S1,S2,RRR GI: +BS, NT, no distention Skin: Persistent mild erythema/streak left groin area, normal scrotal examination, no swelling, no mass. Neuro: motor grossly intact Psych: appropriate affect . DS: Data Data Completed and Pending Labs on day of discharge: Laboratory Results - last 24 hr 03/09/25 05:44 WBC 11.4 H RBC 4.81 Hgb 12.8 L Hct 40.4 L MCV 84.0 MCH 26.6 L MCHC 31.7 RDW 14.0 Plt Count 264 MPV 9.9 Absolute Nucleated RBC 0.000 Nucleated RBC % (auto) 0.0 Creatinine 0.97 Estim Creat Clear Calc 126.6 Estimated GFR > 60 T.pallidum Ab (EIA) Nonreactive HIV 1&2 Ab/P24 Ag 4thGn Nonreactive Preliminary micro results at discharge 03/05/25 18:52 Blood Culture - Preliminary Blood - Venous No growth after 48 hours. 03/05/25 18:52 Blood Culture - Preliminary Blood - Venous No growth after 48 hours. Discharge Plan Discharge Anticipated Discharge Date/Time: 03/09/25 10:38 Patient Disposition: Home, Self-Care Discharge Diagnosis: left epidydimitis groin cellulitis Referrals: Physician,Unknown J [Primary Care Provider] - 1 Week Discharge Medications: New linezolid 600 mg Tablet 600 mg PO Q12H Qty: 20 0RF levofloxacin 500 mg Tablet 500 mg PO Q24H Qty: 10 0RF Continued acetaminophen [Tylenol] 325 mg Tablet 650 mg PO Q6H PRN (Reason: Pain) polyethylene glycol 3350 [Miralax] 17 gram Powder In Packet 17 g PO DAILY PRN (Reason: Constipation) ibuprofen 200 mg Tablet 400 mg PO Q8H PRN (Reason: Pain) Discharge Orders: Discharge Order (Routine); Ordered 03/09/25 Ordered By: Philly Kline Diet: Advance to usual diet Activity on Discharge: As tolerated Stand Alone Forms: Patient Portal Discharge page Print Language: Citizen Of [place] Care Plan Goals: Left epididymitis/left groin lymphadenitis/ cellulitis improving take 10 days of Levaquin and linezolid twice daily Returned to check with worsening redness swelling of pain. Avoid heavy exercise or repetitive left leg activity Health Concerns: Take home medications as before Plan of Treatment: Outpatient follow-up with Urology call for appointment in 2 weeks Outpatient follow-up with primary care physician Assessment: as above
[2025-03-09] MEDS: levoFLOXacin 500 MG TABLET PO (11:01)
--- NOTE | 2025-03-09 11:31 | MHC.CM.PN ---
DP: PT HAS BEEN MEDICALLY CLEARED FOR DC HOME, NO SERVICES. PT HAS OWN [facility] HOME.
== END 2025-03-09 11:25 | disposition home or self-care (01) | DRG 383 ==
LOC: HO.ED 03-06 00:22 → HO.EDOVER 03-06 00:37 → HO.S3 03-06 19:29
PROVIDERS: Internal Medicine; Admitting Provider Student in an Organized Health Care Education/Training Program; Emergency Provider Internal Medicine; Visit Provider Hospitalist
DX: L03.314 Cellulitis of groin (principal); E87.21 Acute metabolic acidosis; N45.1 Epididymitis; I88.9 Nonspecific lymphadenitis, unspecified; E66.811 Obesity, class 1; Z68.34 Body mass index [BMI] 34.0-34.9, adult; Z71.3 Dietary counseling and surveillance; Z20.822 Contact with and (suspected) exposure to COVID-19; Z88.0 Allergy status to penicillin; Z79.899 Other long term (current) drug therapy
CPT/HCPCS: 0241U; 36415; 71046; 74177; 76870; 80048; 80053; 80202; 81001; 81003; 82565; 83605; 85025; 85027; 86780; 87040; 87389; 99285; J0131; J0696; J0744; J1650; J2020; J2270; J3370; J3371; Q9967

== ENCOUNTER → 2025-03-05 18:34 | Outpatient (BNV) | payer OTHER, SELFPAY | PROVIDERS: Visit Provider Specialist | DX: R10.9 Unspecified abdominal pain (principal) | CPT/HCPCS: 71046; 74177 ==

== ENCOUNTER 2025-03-06 00:32 | Outpatient (BNV) | payer OTHER, SELFPAY | END 2025-03-07 11:01 | PROVIDERS: Admitting Provider Student in an Organized Health Care Education/Training Program; Emergency Provider Internal Medicine; Visit Provider Radiology Diagnostic Radiology | DX: N50.1 Vascular disorders of male genital organs (principal); R10.30 Lower abdominal pain, unspecified | CPT/HCPCS: 76870 ==

== ENCOUNTER → 2025-03-06 00:32 | Outpatient (BNV) | payer OTHER, SELFPAY | PROVIDERS: Admitting Provider Student in an Organized Health Care Education/Training Program; Emergency Provider Internal Medicine; Visit Provider Internal Medicine | DX: A41.9 Sepsis, unspecified organism (principal); L03.90 Cellulitis, unspecified | CPT/HCPCS: 99222 ==

== ENCOUNTER → 2025-03-06 00:32 | Outpatient (BNV) | payer OTHER, SELFPAY | PROVIDERS: Admitting Provider Student in an Organized Health Care Education/Training Program; Emergency Provider Internal Medicine; Visit Provider Student in an Organized Health Care Education/Training Program | DX: L03.90 Cellulitis, unspecified (principal); A41.9 Sepsis, unspecified organism | CPT/HCPCS: 99233; 99239 ==

== ENCOUNTER 2025-09-24 16:18 | Outpatient (AMB) | payer BC, SELFPAY ==
--- NOTE | 2025-09-24 16:25 | MHC.PC.OV ---
Vital Signs 09/24/25 16:27 Height 5 ft 11.46 in Weight 256 lb 4 oz BMI 35.3 BP 110/66 Blood Pressure Location Lt brachial Position Sitting Pulse 61 Pulse Source Pulse Oximeter Temp 97.3 F Temp Source Temporal Artery Scan Pulse Oximetry (%) 98 Oxygen Delivery Method Room Air Intake Visit Reasons: establish care Intake Note: Patient is a new patient here to establish care for Anxiety, Allergic rhinitis, Cellulites, Constipation, Inflammation of Achilles. Transferring care from Unknown . Medical records have not been requested and have not received. Treasury Specialist Required: No Manager Of Software: Not Required per policy Accompanied by: Self / Same As Patient Allergies naproxen (NAPROXEN) Allergy (Severe, Verified 09/24/25 16:26) Angioedema Penicillins (PENICILLINS) Allergy (Severe, Verified 09/24/25 16:26) ANAPHYLAXIS amoxicillin Allergy (Intermediate, Verified 09/24/25 16:26) Hives Carver And Derivatives Allergy (Verified 09/24/25 16:26) Hives Medication List - Last Reconciled 09/24/25 by Jo Saab MD acetaminophen (Tylenol) 650 mg PO Q6H PRN ibuprofen 400 mg PO Q8H PRN polyethylene glycol 3350 (Miralax) 17 grams PO DAILY PRN Tobacco use date assessed: 09/24/25 Dental Screening Dental Screen Date: 09/24/25 Did you have a dental visit in the last 12 months?: Yes Did you have a dental problem in the last 6 months where you did not have access to dental care?: No Was dental information given to patient?: Patient has dentist HPI HPI Comments History of Present Illness Details The patient is a 45-year-old male presenting to [facility]. He reports bilateral Achilles tendinitis and associated symptoms. The patient reports experiencing inflammation in both Achilles tendons for the past six months, which has necessitated physical therapy and the use of a brace. He has been prescribed steroids, which provided temporary relief, but the pain persists. The patient also reports a history of constipation, which he attributes to dietary habits. He has been using a laxative to manage this condition, but feels it is not entirely effective. There is a significant family history of colon cancer, with the patient's father having from the disease. The patient is overdue for a colonoscopy, having missed the recommended screening at age 43 due to lack of insurance. The patient has gained approximately 30 pounds over the past year, which he attributes to poor dietary habits and decreased physical activity due to pain. He reports feeling bloated and experiencing heartburn, which he associates with his current diet. The patient also reports experiencing back pain, which he describes as worsening with prolonged sitting and standing. He has been undergoing physical therapy, which has provided some relief. [facility] Medical History (Updated 09/25/25 @ 09:49 by Jo Saab MD) Plantar fasciitis Need for Tdap vaccination Seasonal allergies Allergic rhinitis Anxiety Family history of colon cancer in father Colon cancer screening Nephrotic syndrome Surgical History (Updated 09/24/25 @ 16:36 by ADAMA Barbosa) History of hand surgery History of tonsillectomy Family History Father Colon cancer Mother No problems noted. Son Seizures Asthma Allergy Maternal Grandmother No problems noted. Maternal Grandfather No problems noted. Daughter No problems noted. Daughter No problems noted. Social History Household Members: Spouse Housing: Apartment Do you presently have visiting nurse or other home services: No Alcohol intake: former Patient Tobacco Use Status: Never used Tobacco e-Cigarette/Vaping Use: Never Used Second Hand Smoke Exposure: No Substance Use Type: Marijuana service: No Current occupational status: employed Current occupation: [employer] Cognitive needs: No Hearing needs: No Vision needs: No Questionnaire PHQ-9 Over the last 2 weeks, how often have you been bothered by any of the following problems? 1. Little interest or pleasure in doing things: several days 2. Feeling down, depressed, or hopeless: not at all 3. Trouble falling or staying asleep, or sleeping too much: several days 4. Feeling tired or having little energy: nearly every day 5. Poor appetite or overeating: nearly every day 6. Feeling bad about yourself - or that you are a failure or have let yourself or your family down: not at all 7. Trouble concentrating on things, such as reading the newspaper or watching television: several days 8. Moving or speaking so slowly that other people could have noticed. Or the opposite - being so fidgety or restless that you have been moving around a lot more than usual: nearly every day 9. Thoughts that you would be better off or of hurting yourself in some way: not at all Total score: 12 Depression Screening Interpretation: Positive Depression Screening Done: Yes Source: Developed by Drs. Kenny Pitts, Janina Jay, Yrn Coppola and colleagues, with an educational venu from [employer]. Thrive Questionnaire Date Thrive assessed: 09/23/25 I am a: Patient What is your living situation today?: I have a steady place to live Within the past 12 months, did the food you bought not last and you didn't have the money to get more?: Never true Within the past 12 months, did you worry whether your food would run out before you got money to buy more?: Never true Do you have trouble paying for medicines?: No Do you have trouble getting transportation to medical appointments?: No Do you have trouble paying your heating and electricity bill?: No Do you have trouble taking care of your child, family member or friend?: No Do you have trouble with day-to-day activities such as bathing, preparing meals, shopping, managing finances, etc.?: No Are you currently unemployed and looking for a job?: No Are you interested in more education?: Yes Please select the resources that you would like help with: Education Currently or been in a relationship where the following occur: No concerns reported THRIVE Score: 0 AUDIT C Alcohol Use Questionnaire (AUDIT-C) 1. How often do you have a drink containing alcohol?: Never Total Score: 0 GILBERTO-7 AMB Questionnaire GILBERTO-7 Date GILBERTO - 7 assessed: 09/24/25 Feeling nervous, anxious, or on edge: 0 = Not at all Not being able to stop or control worryin = Not at all Worrying too much about different things: 0 = Not at all Trouble relaxin = Not at all Being so restless that it is hard to sit still: 0 = Not at all Becoming easily annoyed or irritable: 0 = Not at all Feeling afraid as if something awful might happen: 0 = Not at all Total GILBERTO-7 score (0-4 normal; 5-9 mild; 10-14 moderate; 15-21 severe): 0 Source: Developed by Drs. Kenny Pitts, Janina Jay, Yrn Coppola and colleagues, with an educational venu from [employer]. Review of Systems Const Details: Positives besides what was mentioned in HPI are in BOLD Constitutional: No Weight Change, No Fever, No Chills, No Night Sweats, No Fatigue, No Malaise ENT/Mouth: No Hearing Changes, No Ear Pain, No Nasal Congestion, No Sinus Pain, No Hoarseness, No sore throat, No Rhinorrhea, No Swallowing Difficulty Eyes: No Eye Pain, No Swelling, No Redness, No Foreign Body, No Discharge, No Vision Changes Cardiovascular: No Chest Pain, No SOB, No PND, No Dyspnea on Exertion, No Orthopnea, No Claudication, No Edema, No Palpitations Respiratory: No Cough, No Sputum, No Wheezing, No Smoke Exposure, No Dyspnea Gastrointestinal: No Nausea, No Vomiting, No Diarrhea, No Constipation, No Pain, No Heartburn, No Anorexia, No Dysphagia, No Hematochezia, No Melena, No Flatulence, No Jaundice Genitourinary: No Dysmenorrhea, No DUB, No Dyspareunia, No Dysuria, No Urinary Frequency, No Hematuria, No Urinary Incontinence, No Urgency, No Flank Pain, No Urinary Flow Changes, No Hesitancy Musculoskeletal: No Arthralgias, No Myalgias, No Joint Swelling, No Joint Stiffness, No Back Pain, No Neck Pain, No Injury History Skin: No Skin Lesions, No Pruritis, No Hair Changes, No Breast/Skin Changes, No Nipple Discharge Neuro: No Weakness, No Numbness, No Paresthesias, No Loss of Consciousness, No Syncope, No Dizziness, No Headache, No Coordination Changes, No Recent Falls Psych: No Anxiety/Panic, No Depression, No Insomnia, No Personality Changes, No Delusions, No Rumination, No SI/HI/AH/VH, No Social Issues, No Memory Changes, No Violence/Abuse Hx., No Eating Concerns Heme/Lymph: No Bruising, No Bleeding, No Transfusions History, No Lymphadenopathy Endocrine: No Polyuria, No Polydipsia, No Temperature Intolerance Physical exam (Primary Care) Vital Signs: Last Vital Signs Temp 97.3 F 09/24/25 16:27 Pulse 61 09/24/25 16:27 BP 110/66 09/24/25 16:27 Pulse Ox 98 10/24/25 16:27 Oxygen Delivery Method Room Air 09/24/25 16:27 BMI result Body Mass Index 35.3 Tobacco/Smoking Status: Tobacco use Status Tobacco use date assessed 09/24/25 09/24/25 16:37 Patient Tobacco Use Status Never used Tobacco 09/24/25 16:37 e-Cigarette/Vaping Use Never Used 09/24/25 16:37 PHQ-9: PHQ-9 Score PHQ-9: Total score 12 09/24/25 16:45 Depression Screening Interpretation: Positive Thrive Assessment: Date of Thrive Assessment Date Thrive assessed 09/23/25 09/24/25 16:37 Currently or been in a relationship where the following occur: No concerns reported Const Other: Pertinent findings are in BOLD GENERAL APPEARANCE NAD, activity normal for age, well developed/ well nourished, no cyanosis, pallor, or diaphoresis. EYES lids/conjunctiva normal. EARS/NOSE/THROAT Mucous membranes moist, nares normal, lips/teeth normal uvula midline without oral pharyngeal erythema, exudate or swelling TMs normal bilaterally. No lymphangitis/lymphedema. HEAD/NECK normocephalic atraumatic, no facial trauma, neck is supple. RESPIRATORY respiratory effort normal, speaks in full sentences, no tripod position, no accessory muscle use. Lungs clear to auscultation without rhonchi, wheezes, rales CARDIAC Regular rate and rhythm, no edema. ABDOMINAL Soft, ND/NT. No evidence of fluid wave. No pulsatile masses on exam, rebound tenderness, Eric sign or pain over Mcburney's point. MUSCLES/EXTREMITIES No abnormal range of motion, no swelling. Tenderness to palpation of the lower back. Tenderness on palpation of Achilles tendon bilaterally. SKIN Warm, pink and dry. No rashes, dermatoses, petechiae or lesions. NEUROLOGICAL Speech is clear and appropriate. Normal level of consciousness. Gait and coordination are normal. 5/5 strength in all extremities. PSYCH Normal mood and affect. Judgement/competence is appropriate Coding Level of Care Code New Pt Level 4 (72280) New Pt Prev Care 40-64y(15068) Diagnoses Healthcare maintenance Z00.00 Enthesitis M77.9 Gastroesophageal reflux disease, unspecified whether esophagitis present K21.9 Esophagitis presence: esophagitis presence not specified Constipation, unspecified constipation type K59.00 Constipation type: unspecified constipation type Class 2 obesity due to excess calories with body mass index (BMI) of 35.0 to 35.9 in adult, unspecified whether serious comorbidity present E66.09; Z68.35 Obesity classification: adult class 2 (BMI 35 - 39.9) Serious obesity comorbidity presence: unspecified whether serious comorbidity present Body mass index: BMI 35.0-35.9 Obesity type: due to excess calories Bilateral low back pain without sciatica, unspecified chronicity M54.50 Chronicity: unspecified Back pain laterality: bilateral Sciatica presence: without sciatica Time Spent (min) 40 Assessment & Plan Assessment & Plan (1) Healthcare maintenance: Code(s): Z00.00 - Encounter for general adult medical examination without abnormal findings Category: Medical Plan: CBC, CMP, Lipid panel, A1C, TSH w T4, vit D. Ordered today. Shingles 2 doses when >50 yo. COVID: two doses. We will discuss during next visit. Pneumococcal: 19-64. Next visit. Flu vaccine: Next visit. Tdap: Colonoscopy: 45-75. Ordered today. Father passed due to colon cancer. He is overdue for screening. He was supposed to get it at 45. AAA: 65 -75. NI. CT lun - 80. NI. PSA: 50 -70 every two years. HIV: ordered today. HCV: ordered today. (2) Enthesitis: Code(s): M77.9 - Enthesopathy, unspecified Category: Medical Plan: MRI of the ankles to rule out enthesitis. Patient reports previous trial of steroid shots which provided relief and then the pain came back. No skin lesions suggestive of psoriasis. The patient reports associated lower back pain so Ankylosing spondylitis is a possibility. Rheumatologic W-U: ESR, CRP, JOSELUIS, RF, anti CCP, Urine protein, HLA-B27, andti DS DNA, MRI of lumbar back to rule out ankylosing spondylitis. Lifestyle modification to assist with pain. (3) GERD (gastroesophageal reflux disease): Code(s): K21.9 - Gastro-esophageal reflux disease without esophagitis Category: Medical Qualifiers: Esophagitis presence: esophagitis presence not specified Qualified Code(s): K21.9 - Gastro-esophageal reflux disease without esophagitis Plan: Omeprazole 20 mg Daily. Diet modification to identify triggers. No weight loss, no odynophagia, no dysphagia, No tarry stool, no vomiting. (4) Constipation: Code(s): K59.00 - Constipation, unspecified Category: Medical Qualifiers: Constipation type: unspecified constipation type Qualified Code(s): K59.00 - Constipation, unspecified Plan: Patient has been using Miralax with not much relief. Added Senna and recommended using Senna and Miralax combination. (5) Obesity: Comment: weight 256lb 09/25. Code(s): E66.9 - Obesity, unspecified Category: Medical Qualifiers: Obesity classification: adult class 2 (BMI 35 - 39.9) Serious obesity comorbidity presence: unspecified whether serious comorbidity present Body mass index: BMI 35.0-35.9 Obesity type: due to excess calories Qualified Code(s): E66.09 - Other obesity due to excess calories; Z68.35 - Body mass index [BMI] 35.0-35.9, adult Plan: Advised on lifestyle modification. We will discuss weight management referral if the patient does not loose weight with lifestyle modifications only. (6) Low back pain: Code(s): M54.50 - Low back pain, unspecified Category: Medical Qualifiers: Chronicity: unspecified Back pain laterality: bilateral Sciatica presence: without sciatica Qualified Code(s): M54.50 - Low back pain, unspecified Plan: Low back pain in the presence of achiles tendon tenderness might indicate ankylosing spondylitis. MRI lumbar spine to detect early arthritic changes or signs of ankylosing spondylitis. Orders: Orders Complete Blood Count no Diff 09/24/25. - Encounter for general adult medical examination without abnormal findings Vitamin D 25-OH Total 09/24/25. - Encounter for general adult medical examination without abnormal findings TSH reflex Free T4 09/24/25. - Encounter for general adult medical examination without abnormal findings HIV Ab/Ag 09/24/25. - Encounter for general adult medical examination without abnormal findings Hepatitis C Antibody Reflex 09/24/25. - Encounter for general adult medical examination without abnormal findings Comprehensive Met. Panel 09/24/25 - Encounter for general adult medical examination without abnormal findings Hemoglobin A1c 09/24/25. - Encounter for general adult medical examination without abnormal findings Lipid Panel 09/24/25 Z00.00 - Encounter for general adult medical examination without abnormal findings UA and rflx microscopic 09/24/25 Z00.00 - Encounter for general adult medical examination without abnormal findings HLA B27 Today M77.9 - Enthesopathy, unspecified JOSELUIS Reflex Titer and Pattern Today M77.9 - Enthesopathy, unspecified Rheumatoid Factor Today M77.9 - Enthesopathy, unspecified MR lumbar spine wo con Today M45.9 - Ankylosing spondylitis of unspecified sites in spine CRP High Sensitivity Today M77.9 - Enthesopathy, unspecified Erythrocyte Sedimentation Rate Today M77.9 - Enthesopathy, unspecified Cyclic Citrullinated Peptide Today M77.9 - Enthesopathy, unspecified Microalbumin, Random (w Creat) Today M77.9 - Enthesopathy, unspecified Anti DNA DS Antibody Today M77.9 - Enthesopathy, unspecified Referrals Open Access Screening Colonoscopy Referral Z12.11 - Encounter for screening for malignant neoplasm of colon, Z12.12 - Encounter for screening for malignant neoplasm of rectum Medications: New sennosides (senna) 8.6 mg PO BEDTIME PRN 20 caps 0RF constipation omeprazole 20 mg PO DAILY 30 caps 3RF
[2025-09-24 16:27] VITALS: BP 110/66; PULSE 61; TEMP 36.3; O2SAT 98; BMI 35.3
--- OUTSIDE RECORDS SUMMARY | 2025-09-24 17:18 | XMS_ITS | Clinical Summary ---
Author Organization [facility], Address [address] [place] [address] [place] [address] Phone Care Team Providers Care On Call Pharmacy Technician Name Role Phone Nicolas James MD Primary Care Provider [phone] Allergies Active Allergy Reactions Criticality Noted Date [...] 19+ 3-dose series) 1998 Influenza Vaccine (#1) 2025 Pneumococcal Vaccine: Peds ( 0 to 5 Years) and At-Risk Patients (6 to 49 Years) Aged Out No longer eligible b ased on patient's age to complete this topic Insurance [facility] Core ([id number]) Care Teams On Call Pharmacy Technician Relationship Specialty Start Date End Date Nicolas James MD [facility] [place], [place] [id number] PCP - General Internal Medicine 01/26/21
--- OUTSIDE RECORDS SUMMARY | 2025-09-24 17:18 | XMS_ITS | Patient Health Record ---
[facility] [place] Address [address] [place] [address] Care Team Providers Care Body Technician/Painter Name Role Phone Heath Huerta Primary Care Provider Unav ailable Black, Leandra Unavailable [phone] Allergies Allergen (clinical drug ingredient) Drug/Non Drug [...] MG 1 tablet Orally Onc e a day; Duration: 30 day(s) Active EpiPen prn Not-Taking Physical Therapy . . . 2-3x/week; Duration: 3-4 weeks 11/09/2021 Active Social History Tobacco Use: [...] Treatment Pending Test Test Name Order Date ,[id number] TENDON SHEATH/LIGAMENT 0 06/19/2021,[id number] TENDON SHEATH/LIGAMENT 1 01/10/2021 Insurance Providers Payer Name Payer Address Payer Phone Subscriber Number Group Number Insured Name Patient Relationship to Insured Coverage Start Date Coverage End Date [facility] [id number] [address] [address] [place] [address] [id number] Tracie Tobias Spouse - patient is the spouse of the insured Medical (General) History Medical History History ICD Code Chicken pox Surgical History Surgery Date(Month/Year) tonsillectomy tendon repair, right hand
== END 2025-09-24 17:18 | disposition home or self-care (01) ==
LOC: HO.HMCH 16:19
PROVIDERS: Visit Provider Internal Medicine
DX: Z00.00 Encounter for general adult medical examination without abnormal findings (principal); M77.9 Enthesopathy, unspecified; E66.09 Other obesity due to excess calories; Z68.35 Body mass index [BMI] 35.0-35.9, adult; K21.9 Gastro-esophageal reflux disease without esophagitis; K59.00 Constipation, unspecified; M54.50 Low back pain, unspecified

== ENCOUNTER 2025-10-07 09:21 | Outpatient (REF) | payer BC, SELFPAY ==
--- OUTSIDE RECORDS SUMMARY | 2025-10-07 10:25 | XMS_ITS | Patient Health Record ---
[facility] [place] Address [address] [place] [address] Care Team Providers Care Pharmacy Intake Coordinator Name Role Phone Heath Huerta Primary Care Provider Unav ailable Black, Leandra Unavailable [phone] Allergies Allergen (clinical drug ingredient) Drug/Non Drug [...] Treatment Pending Test Test Name Order Date ,[id number] TENDON SHEATH/LIGAMENT 0 06/19/2021,[id number] TENDON SHEATH/LIGAMENT 1 01/10/2021 Insurance Providers Payer Name Payer Address Payer Phone Subscriber Number Group Number Insured Name Patient Relationship to Insured Coverage Start Date Coverage End Date [employer] [id number] [address] [address] [place] [address] [id number] Tracie Tobias Spouse - patient is the spouse of the insured Medical (General) History Medical History History ICD Code Chicken pox Surgical History Surgery Date(Month/Year) tonsillectomy tendon repair, right hand
[2025-10-07 10:37] LABS: Hematocrit 45.6 % (42.0-52.0); Hemoglobin 14.1 g/dl (14.0-18.0); Mean Corpuscular HGB Conc 30.9 g/dl (31.0-36.0); Mean Corpuscular Hemoglobin 26.1 pg (27.0-33.0); Mean Corpuscular Volume 84.3 fL (80.0-98.0); NRBC Abs Auto 0.020 X10*3/uL (0.0-0.012); NRBC Pct Auto 0.3 /100WBC (0.0-0.2); Platelet Count 345 X10*3/uL (160-400); Red Blood Count 5.41 X10*6/uL (4.60-5.80); White Blood Count 6.1 X10*3/uL (4.8-10.8)
[2025-10-07 10:59] LABS: Appearance Urine Clear; Glucose Urine UA Negative (Negative); PH 5.0 (5.0-9.0); Specific Gravity - Urine 1.020 (1.005-1.025)
[2025-10-07 11:16] LABS: Alanine Aminotransferase 47 U/L (0-40); Albumin Level 4.4 g/dL (3.5-5.0); Alkaline Phosphatase 54 U/L (39-117); Anion Gap 9 (12-20); Aspartate Amino Transferase 30 U/L (5-37); Blood Urea Nitrogen 16 mg/dL (9-16); Calcium 8.8 mg/dL (8.4-10.2); Carbon Dioxide 28 mmol/L (22-29); Chloride 109 mmol/L (96-108); Cholesterol 231 mg/dL (<200); Estimated Glomerular Filt Rate > 60; HDL Cholesterol 38 mg/dL (>40); Potassium 4.2 mmol/L (3.3-5.1); Sodium 142 mmol/L (135-145); Total Protein 6.9 g/dL (6.5-8.0); Triglycerides 97 mg/dL (<150)
[2025-10-07 11:26] LABS: HIV Num 1 0.05 S/CO (0.00-0.99); ~HepC Num1 0.09 S/CO (0.00-0.79); ~Hepatitis C Antibody Nonreactive (Nonreactive)
[2025-10-12 16:03] LABS: Anti Nuclear Antibody Screen NEGATIVE (NEGATIVE)
[2025-10-12 16:54] LABS: HLA B27 Negative (Negative)
== END 2025-10-07 09:22 | disposition home or self-care (01) ==
LOC: HO.LAB 09:21
PROVIDERS: PCP Internal Medicine; Visit Provider Internal Medicine
DX: Z00.00 Encounter for general adult medical examination without abnormal findings (principal); Z01.84 Encounter for antibody response examination; Z11.4 Encounter for screening for human immunodeficiency virus [HIV]; Z11.59 Encounter for screening for other viral diseases; M77.9 Enthesopathy, unspecified; Z13.6 Encounter for screening for cardiovascular disorders; Z13.1 Encounter for screening for diabetes mellitus; Z13.29 Encounter for screening for other suspected endocrine disorder; Z13.21 Encounter for screening for nutritional disorder
CPT/HCPCS: 36415; 80053; 80061; 81003; 82043; 82306; 82570; 83036; 84443; 85027; 85652; 86038; 86141; 86200; 86225; 86431; 86803; 86812; 87389

== ENCOUNTER 2025-10-22 16:30 | Outpatient (AMB) | payer BC, SELFPAY ==
--- OUTSIDE RECORDS SUMMARY | 2025-10-22 16:32 | XMS_ITS | Clinical Summary ---
Author Organization [facility], Address [address] [place] [address] [place] [address] Phone Care Team Providers Care Process Developer Name Role Phone Nicolas James MD Primary Care Provider [phone]- [phone] Allergies Active Allergy Reactions Criticality Noted Date [...] patient's age to complete this topic Insurance [facility] Core ([id number]) Care Teams Process Developer Relationship Specialty Start Date End Date Nicolas James MD PCP - General Internal Medicine 01/26/21
--- OUTSIDE RECORDS SUMMARY | 2025-10-22 16:32 | XMS_ITS | Patient Health Record ---
[facility] Address [address] [place] [address] Care Team Providers Care Fiber Optic Assembler Name Role Phone Heath Huerta Primary Care Provider Unav ailable Black, Leandra Unavailable [phone] Allergies Allergen (clinical drug ingredient) Drug/Non Drug [...] Treatment Pending Test Test Name Order Date ,[id number] TENDON SHEATH/LIGAMENT 0 06/19/2021,[id number] TENDON SHEATH/LIGAMENT 1 01/10/2021 Insurance Providers Payer Name Payer Address Payer Phone Subscriber Number Group Number Insured Name Patient Relationship to Insured Coverage Start Date Coverage End Date [facility] [id number] [address] [address] [place] [address] [id number] Tracie Tobias Spouse - patient is the spouse of the insured Medical (General) History Medical History History ICD Code Chicken pox Surgical History Surgery Date(Month/Year) tonsillectomy tendon repair, right hand
[2025-10-22 16:36] VITALS: BP 124/82; PULSE 84; TEMP 36.4; O2SAT 94; BMI 35.6
--- NOTE | 2025-10-22 16:36 | A.OFFPC_ITS ---
Vital Signs 10/22/25 16:36 Height 5 ft 11.46 in Weight 258 lb 4 oz BMI 35.6 BP 124/82 Blood Pressure Location Lt brachial Position Sitting Pulse 84 Pulse Source Pulse Oximeter Temp 97.5 F Temp Source Temporal Artery Scan Pulse Oximetry (%) 94 Oxygen Delivery Method Room Air Intake Visit Reasons: 1 Month follow up Allergies naproxen (NAPROXEN) Allergy (Severe, Verified 10/22/25 16:38) Angioedema Penicillins (PENICILLINS) Allergy (Severe, Verified 10/22/25 16:38) ANAPHYLAXIS amoxicillin Allergy (Intermediate, Verified 10/22/25 16:38) Hives [place] And Derivatives Allergy (Verified 10/22/25 16:38) Hives Medication List - Last Reconciled 10/22/25 by Jo Saab MD acetaminophen (Tylenol) 650 mg PO Q6H PRN atorvastatin (Lipitor) 40 mg PO DAILY ibuprofen 400 mg PO Q8H PRN omeprazole 20 mg PO DAILY polyethylene glycol 3350 (Miralax) 17 grams PO DAILY PRN sennosides (senna) 8.6 mg PO BEDTIME PRN Tobacco use date assessed: 10/22/25 Dental Screening Dental Screen Date: 10/22/25 Did you have a dental visit in the last 12 months?: Yes Did you have a dental problem in the last 6 months where you did not have access to dental care?: No Was dental information given to patient?: Patient has dentist HPI HPI Comments History of Present Illness Details The patient is a 45 year old individual presenting for follow-up on bilateral foot pain, hypercholesterolemia, and constipation. The patient reports ongoing bilateral chilles tendon pain and swelling. 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 The patient has a 40-pound weight gain, which is also considered a contributing factor. 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 Aguero, who recommended weight loss and provided a boot for home use, with a plan to avoid surgery if possible, which would require a six-week recovery for each leg. The patient previously used a muscle relaxer which helped with sleep but has run out. The patient was recently found to have high cholesterol and wishes to attempt lifestyle modifications before starting medication. The patient has been implementing dietary changes for the past 3-4 weeks, although acknowledges that red meat was consumed for three days prior to the lab test, which is not a typical part of the patient's diet. Dietary habits include consumption of pizza and fried foods. There is a family history of high cholesterol. The patient reports experiencing constipation and was prescribed Senna and MiraLax. The patient was not taking them together as intended and ran out of MiraLax. The patient has also been skipping breakfast. Past workup for rheumatological and autoimmune diseases, including ESR, CRP, JOSELUIS, and rheumatoid factor, was negative. The patient has a history of acid reflux managed with omeprazole. FOR[facility], [facility] Medical History Plantar fasciitis Need for Tdap vaccination Seasonal allergies Allergic rhinitis Anxiety Family history of colon cancer in father Colon cancer screening Nephrotic syndrome Surgical History History of hand surgery History of tonsillectomy Family History Father Colon cancer Mother No problems noted. Son Seizures Asthma Allergy Maternal Grandmother No problems noted. Maternal Grandfather No problems noted. Daughter No problems noted. Daughter No problems noted. Social History Household Members: Spouse Housing: Apartment Do you presently have visiting nurse or other home services: No Alcohol intake: former Patient Tobacco Use Status: Never used Tobacco e-Cigarette/Vaping Use: Never Used Second Hand Smoke Exposure: No Substance Use Type: Marijuana service: No Current occupational status: employed Current occupation: [employer] Cognitive needs: No Hearing needs: No Vision needs: No Questionnaire PHQ-9 Over the last 2 weeks, how often have you been bothered by any of the following problems? 1. Little interest or pleasure in doing things: several days 2. Feeling down, depressed, or hopeless: not at all 3. Trouble falling or staying asleep, or sleeping too much: several days 4. Feeling tired or having little energy: nearly every day 5. Poor appetite or overeating: nearly every day 6. Feeling bad about yourself - or that you are a failure or have let yourself or your family down: not at all 7. Trouble concentrating on things, such as reading the newspaper or watching television: several days 8. Moving or speaking so slowly that other people could have noticed. Or the op posite - being so fidgety or restless that you have been moving around a lot more than usual: nearly every day 9. Thoughts that you would be better off or of hurting yourself in some way: not at all Total score: 12 Depression Screening Interpretation: Positive Depression Screening Done: Yes Source: Developed by Drs. Kenny Pitts, Janina Jay, Yrn Coppola and colleagues, with an educational venu from [employer]. Thrive Questionnaire Date Thrive assessed: 09/23/25 I am a: Patient What is your living situation today?: I have a steady place to live Within the past 12 months, did the food you bought not last and you didn't have the money to get more?: Never true Within the past 12 months, did you worry whether your food would run out before you got money to buy more?: Never true Do you have trouble paying for medicines?: No Do you have trouble getting transportation to medical appointments?: No Do you have trouble paying your heating and electricity bill?: No Do you have trouble taking care of your child, family member or friend?: No Do you have trouble with day-to-day activities such as bathing, preparing meals, shopping, managing finances, etc.?: No Are you currently unemployed and looking for a job?: No Are you interested in more education?: Yes Please select the resources that you would like help with: Education Currently or been in a relationship where the following occur: No concerns reported THRIVE Score: 0 AUDIT C Alcohol Use Questionnaire (AUDIT-C) 1. How often do you have a drink containing alcohol?: Never 3. How often do you have six or more drinks on one occasion?: Never Total Score: 0 GILBERTO-7 AMB Questionnaire GILBERTO-7 Date GILBERTO - 7 assessed: 09/24/25 Feeling nervous, anxious, or on edge: 0 = Not at all Not being able to stop or control worryin = Not at all Worrying too much about different things: 0 = Not at all Trouble relaxin = Not at all Being so restless that it is hard to sit still: 0 = Not at all Becoming easily annoyed or irritable: 0 = Not at all Feeling afraid as if something awful might happen: 0 = Not at all Total GILBERTO-7 score (0-4 normal; 5-9 mild; 10-14 moderate; 15-21 severe): 0 Source: Developed by Drs. Kenny Pitts, Janina Jay, Yrn Coppola and colleagues, with an educational venu from [employer]. Physical exam (Primary Care) Vital Signs: Last Vital Signs Temp 97.5 F 10/22/25 16:36 Pulse 84 10/22/25 16:36 BP 124/82 10/22/25 16:36 Pulse Ox 94 10/22/25 16:36 Oxygen Delivery Method Room Air 10/22/25 16:36 BMI result Body Mass Index 35.6 Tobacco/Smoking Status: Tobacco use Status Tobacco use date assessed 10/22/25 10/22/25 16:39 Patient Tobacco Use Status Never used Tobacco 10/22/25 16:39 e-Cigarette/Vaping Use Never Used 10/22/25 16:39 PHQ-9: PHQ-9 Score PHQ-9: Total score 12 10/22/25 16:39 Depression Screening Interpretation: Positive Thrive Assessment: Date of Thrive Assessment Date Thrive assessed 09/23/25 10/22/25 16:39 Currently or been in a relationship where the following occur: No concerns reported Const Other: Pertinent findings are in BOLD GENERAL APPEARANCE NAD, activity normal for age, well developed/ well nourished, no cyanosis, pallor, or diaphoresis. EYES lids/conjunctiva normal. EARS/NOSE/THROAT Mucous membranes moist, nares normal, lips/teeth normal uvula midline without oral pharyngeal erythema, exudate or swelling TMs normal bilaterally. No lymphangitis/lymphedema. HEAD/NECK normocephalic atraumatic, no facial trauma, neck is supple. RESPIRATORY respiratory effort normal, speaks in full sentences, no tripod position, no accessory muscle use. Lungs clear to auscultation without rhonchi, wheezes, rales CARDIAC Regular rate and rhythm, no edema. ABDOMINAL Soft, ND/NT. No evidence of fluid wave. No pulsatile masses on exam, rebound tenderness, Eric sign or pain over Mcburney's point. MUSCLES/EXTREMITIES No abnormal range of motion, no swelling. Achilles tendon erythema bilateral. SKIN Warm, pink and dry. No rashes, dermatoses, petechiae or lesions. NEUROLOGICAL Speech is clear and appropriate. Normal level of consciousness. Gait and coordination are normal. 5/5 strength in all extremities. PSYCH Normal mood and affect. Judgement/competence is appropriate Coding Level of Care Code Est Pt Level 4 (46847) Diagnoses Hyperlipidemia, unspecified hyperlipidemia type E78.5 Hyperlipidemia type: unspecified Enthesitis M77.9 Constipation, unspecified constipation type K59.00 Constipation type: unspecified constipation type Time Spent (min) 30 Assessment & Plan Assessment & Plan (1) HLD (hyperlipidemia): Code(s): E78.5 - Hyperlipidemia, unspecified Category: Medical Qualifiers: Hyperlipidemia type: unspecified Qualified Code(s): E78.5 - Hyperlipidemia, unspecified Plan: - Holding off on starting cholesterol medication at patient's request to first attempt lifestyle modifications. - Provided dietary counseling to avoid dairy products, red meat, pasta, bread, and sugar. - Encouraged a focus on cardio exercise, such as biking, rather than intensive muscle-building workouts to promote weight loss without significantly increasing appetite. - Plan to repeat lipid panel in four months to assess response to lifestyle changes. - If cholesterol levels remain high, medication will be initiated. (2) Enthesitis: Code(s): M77.9 - Enthesopathy, unspecified Category: Medical Plan: - Agreed that surgery is not indicated at this time. - Prescribed cyclobenzaprine (Flexeril) as a muscle relaxant to be taken at night. - Encouraged rest, especially during the patient's upcoming month off work, and use of the prescribed boot while at home. 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 - Recommended ibuprofen as needed for pain and inflammation. - Recent Rheumatologic W-U was negative. (3) Constipation: Code(s): K59.00 - Constipation, unspecified Category: Medical Qualifiers: Constipation type: unspecified constipation type Qualified Code(s): K59.00 - Constipation, unspecified Plan: - A new prescription for Senna was sent. - Instructed the patient to take Senna along with Miralax for better efficacy. - Advised using the combination on non-work days (e.g., weekends) to avoid interference with work. - Recommended dietary interventions such as prune juice and dried apricots. Plan I discussed with the patient the management of the patient's high cholesterol. We agreed to postpone starting cholesterol medication and instead pursue a four- month trial of intensive diet and lifestyle changes, as the patient requested. I outlined a diet low in red meat, dairy, refined carbohydrates, and sugar. We will re-evaluate with repeat labs before the next appointment in four months, and if the numbers are not improved, we will proceed with medication. I refilled the patient's muscle relaxant (cyclobenzaprine) for foot pain. We also discussed the correct use of Senna with MiraLax for constipation, and I sent a new prescr iption for Senna. I advised the patient on setting up the patient portal to view lab results and to schedule the follow-up appointment. Orders: Orders Lipid Panel 4 Months E78.5 - Hyperlipidemia, unspecified Medications: New ibuprofen 400 mg (2 x 200 mg) PO Q8H PRN 30 tabs 3RF Pain cyclobenzaprine 10 mg PO BEDTIME PRN 30 tabs 3RF muscle spasm Changed From polyethylene glycol 3350 (Miralax) 17 grams PO DAILY PRN Constipation To polyethylene glycol 3350 (Miralax) 17 grams PO BID PRN 30 ea 0RF Constipation From sennosides (senna) 8.6 mg PO BEDTIME PRN 20 caps 0RF constipation To sennosides (senna) 8.6 mg PO BID PRN 30 caps 3RF constipation Refilled omeprazole 20 mg PO DAILY 30 caps 3RF Discontinued atorvastatin (Lipitor) Discontinued Reason: Patient Refused 40 mg PO DAILY 60 tabs 3RF
== END 2025-10-22 17:07 | disposition home or self-care (01) ==
LOC: HO.HMCH 16:31
PROVIDERS: PCP Internal Medicine; Visit Provider Internal Medicine
DX: E78.5 Hyperlipidemia, unspecified (principal); M77.9 Enthesopathy, unspecified; K59.00 Constipation, unspecified